=== PATIENT | male | born 1965 | race Caucasian/White ===

== ENCOUNTER 2017-01-02 19:42 | Inpatient (IN) | payer BC ==
[~2017-01-02] VITALS: Ht 203.2 cm; Wt 146.2 kg
[~2017-01-02 19:42] MED LIST: ASPI81TA21 PO; SERT50TA PO
[2017-01-02] MEDS ORDERED: DILTIAZEM BOLUS / DRIP IV STA ×2 (20:06→21:39)
[2017-01-02] MEDS ORDERED: SODIUM CHLORIDE 0.9% 1000ML 500 ML IV STA (20:06)
[2017-01-02] MEDS ORDERED: SODIUM CHLORIDE 0.9% 1000ML 1,000 ML IV STA (20:06)
[2017-01-02] MEDS ORDERED: DILTIAZEM HCL 5 MG/ML 5 ML VIAL ONE (20:12)
--- NOTE | 2017-01-02 20:32 | DIAGNOSTIC IMAGING REPORT ---
CHEST ONE VIEW PORTABLE HISTORY: EVALUATE ALTERED MENTAL STATUS/WEAKNESS COMPARISON: Chest 09/22/2015. FINDINGS: No pneumothorax. No pleural effusions. The heart remains mildly enlarged. There is mild central pulmonary vascular congestion without overt edema. No focal lung consolidations to suggest pneumonia. IMPRESSION: Mild cardiomegaly. Mild central pulmonary vascular congestion without overt edema. Electronically signed by: Brad Bentley M.D. 01/02/2017 8:30 PM Dictated Date/Time: 01/02/2017 8:29 PM
[2017-01-02 20:35] VITALS: BP 144/81; PULSE 94; TEMP 37; O2SAT 96
[2017-01-02] MEDS ORDERED: LTRCR30 TOP (20:35)
[2017-01-02] MEDS ORDERED: TRIA1SPR4 NAE (20:35)
[2017-01-02 20:40] LABS: ALT/SGPT 26 U/L (12-78); AST/SGOT 18 U/L (15-37); BLOOD UREA NITROGEN 20 mg/dl (7-18); BUN/CREATININE RATIO 18.1 (10-20); CALCIUM 8.8 mg/dl (8.5-10.1); CARBON DIOXIDE 26 mmol/L (21-32); CHLORIDE 108 mmol/L (98-107); GLUCOSE 135 mg/dl (70-99); POTASSIUM 3.7 mmol/L (3.5-5.1); SODIUM 141 mmol/L (136-145)
[2017-01-02] MEDS: DILTIAZEM HCL INJ 125 MG in DEXTROSE 5% 100ML IV PRN (20:42)
[2017-01-02 20:45] LABS: BASO % 0.3 %; BASO ABS # 0.02 K/uL (0-0.2); COMPLETE YES; EOS % 1.8 %; HEMATOCRIT 43.2 % (42-52); IG% 0.3 %; LYMPH % 27.9 %; LYMPH ABS # 1.85 K/uL (1.2-3.4); MEAN CELL VOLUME 85.2 fL (80-100); MEAN CORPUSCULAR HEMOGLOBIN 29.8 pg (25-34); MEAN PLATELET VOLUME 10.5 fL (7.4-10.4); MONO % 5.4 %; NEUT % 64.3 %; PLATELET COUNT 179 K/uL (130-400); RED BLOOD COUNT 5.07 M/uL (4.7-6.1); WHITE BLOOD COUNT 6.64 K/uL (4.8-10.8)
[2017-01-02 20:50] LABS: ALB/GLOB RATIO 1.1 (0.9-2); ALKALINE PHOSPHATASE 61 U/L (45-117)
[2017-01-02 20:57] LABS: INR 1.2 (0.9-1.1); PARTIAL THROMBOPLASTIN RATIO 1.2; PROTHROMBIN TIME (PATIENT) 13.3 SECONDS (9.0-12.0)
--- NOTE | 2017-01-02 21:06 | EMERGENCY ROOM VISIT NOTE ---
History Report prepared by Narciso: Laurel Zabala Under the Supervision of: Dr. Jorje Blackwell M.D. 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 The patient states that he felt well when he woke up, but then was pretty exhausted around 1600. He tried to take a nap, but was unable to fall asleep and when he got up from trying to take a nap, he became lightheaded. He states that he has been experiencing lightheadedness with changes in position since then. He is also experiencing some lightheadedness currently. He states that he proceeded to make dinner, but couldn't eat because he was uncomfortable. He went upstairs and measured his heartbeat on an tre on his phone. He states that it was repeatedly reading in the 130s and 140s, which is abnormal for him because his resting heart rate is typically in the 60s. After he noticed the tachycardia, he decided to come into the ED. He denies chest pain, shortness of breath, and any numbness. The patient adds that he has a history of anxiety and a panic disorder. He states that he feels panicky currently. The patient states that he was recently in [facility] on a Paleontology trip. He states that he is pretty active and works out 3 times a week. The patient adds that he has a history of syncope, more so when he was a kid. He states that his last syncopal episode was 14 years ago on a plane. He states a stress test and EKG after that were unremarkable. The patient is on statins as a preventive measure since his cholesterol was on the border of being high and heart disease runs in his family. The patient denies any history of heart rhythm abnormalities. He also denies any recent Sudafed or Mariana seltzer use, along with any recent alcohol use. However, the patient states he drank some strong coffee this afternoon. The patient states that his mom has atrial fibrillation. 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 A total of 10 systems reviewed and were otherwise negative. Past Medical & Surgical Medical Problems: (1) Hyperlipidemia (2) New onset a-fib (3) Panic disorder Family History Atrial fibrillation Heart disease Social History Smoking Status: Never Smoker Alcohol Use: occasionally Marital Status: Occupation Status: employed Current/Historical Medications Scheduled Aspirin Enteric Coated (Ecotrin Or Generic), 81 MG PO DAILY Clotrimazole (Lotrimin 1%), 1 APPLN TOP BID Pravastatin Sodium (Pravastatin Sodium), 40 MG PO HS Triamcinolone Acetonide (Nasal (Nasacort Allergy 24Hr), 2 SPRAYS EDI DAILY Allergies Coded Allergies: No Known Allergies (Unverified , 01/02/17) Physical Exam Vital Signs Date Time Temp Pulse Resp B/P Pulse Ox O2 Delivery O2 Flow Rate FiO2 01/02/17 21:45 112 18 120/95 95 Room Air 01/02/17 21:31 100 20 131/79 96 Room Air 01/02/17 21:00 109 20 134/91 98 Room Air 01/02/17 20:55 121 20 125/93 99 Room Air 01/02/17 20:50 122 20 156/101 98 Room Air 01/02/17 20:40 115 16 152/107 100 01/02/17 20:30 111 20 132/105 99 Room Air 01/02/17 20:22 112 16 127/106 99 Room Air 01/02/17 20:19 98 Room Air 01/02/17 20:15 133 20 140/94 98 Room Air 01/02/17 20:14 126 01/02/17 20:00 97 Room Air 01/02/17 19:49 36.9 120 20 153/86 96 Room Air Physical Exam GENERAL: Patient is in no acute distress. HEENT: No acute trauma, normocephalic atraumatic, mucous membranes moist, no nasal congestion, no scleral icterus. NECK: No stridor, no adenopathy, no meningismus, trachea is midline. LUNGS: Clear to auscultation bilaterally, no wheeze, no rhonchi, breath sounds equal. HEART: Tachycardic with an irregular rhythm, no murmurs. ABDOMEN: Soft, nontender, bowel sounds positive, no hernias, no peritonitis. EXTREMITIES: No cyanosis or edema, full range of motion of all the joints without pain or difficulty, no signs for acute trauma. NEUROLOGIC: Oriented x 3, no acute motor or sensory deficits, no focal weakness. SKIN: No rash, no jaundice, no diaphoresis. PSYCH: Somewhat anxious but cooperative. Medical Decision & Procedures ER Provider Diagnostic Interpretation: X-ray results as stated below per interpretation by me and the radiologist: CHEST ONE VIEW PORTABLE FINDINGS: No pneumothorax. No pleural effusions. The heart remains mildly enlarged. There is mild central pulmonary vascular congestion without overt edema. No focal lung consolidations to suggest pneumonia. IMPRESSION: Mild cardiomegaly. Mild central pulmonary vascular congestion without overt edema. Electronically signed by: Brad Bentley M.D. 01/02/2017 8:30 PM Dictated Date/Time: 01/02/2017 8:29 PM Laboratory Results 01/02/17 20:40 Red Blood Count 5.07, Mean Corpuscular Volume 85.2, Mean Corpuscular Hemoglobin 29.8, Mean Corpuscular Hemoglobin Concent 35.0, Mean Platelet Volume 10.5, Neutrophils (%) (Auto) 64.3, Lymphocytes (%) (Auto) 27.9, Monocytes (%) (Auto) 5.4, Eosinophils (%) (Auto) 1.8, Basophils (%) (Auto) 0.3, Neutrophils # (Auto) 4.27, Lymphocytes # (Auto) 1.85, Monocytes # (Auto) 0.36, Eosinophils # (Auto) 0.12, Basophils # (Auto) 0.02 01/02/17 20:00 Test 01/02/17 20:00 01/02/17 20:40 Anion Gap 7.0 mmol/L (3-11) Est Creatinine Clear Calc Drug Dose 122.6 ml/min Estimated GFR () 88.4 Estimated GFR (Non- 76.2 BUN/Creatinine Ratio 18.1 (10-20) Calcium Level 8.8 mg/dl (8.5-10.1) Magnesium Level 2.0 mg/dl (1.8-2.4) Total Bilirubin 0.3 mg/dl (0.2-1) Aspartate Amino Transf (AST/SGOT) 18 U/L (15-37) Alanine Aminotransferase (ALT/SGPT) 26 U/L (12-78) Alkaline Phosphatase 61 U/L (45-117) Total Protein 7.2 gm/dl (6.4-8.2) Albumin 3.8 gm/dl (3.4-5.0) Globulin 3.4 gm/dl (2.5-4.0) Albumin/Globulin Ratio 1.1 (0.9-2) Thyroid Stimulating Hormone (TSH) 2.090 uIu/ml (0.300-4.500) White Blood Count 6.64 K/uL (4.8-10.8) Red Blood Count 5.07 M/uL (4.7-6.1) Hemoglobin 15.1 g/dL (14.0-18.0) Hematocrit 43.2 % (42-52) Mean Corpuscular Volume 85.2 fL (80-100) Mean Corpuscular Hemoglobin 29.8 pg (25-34) Mean Corpuscular Hemoglobin Concent 35.0 g/dl (32-36) Platelet Count 179 K/uL (130-400) Mean Platelet Volume 10.5 fL (7.4-10.4) Neutrophils (%) (Auto) 64.3 % Lymphocytes (%) (Auto) 27.9 % Monocytes (%) (Auto) 5.4 % Eosinophils (%) (Auto) 1.8 % Basophils (%) (Auto) 0.3 % Neutrophils # (Auto) 4.27 K/uL (1.4-6.5) Lymphocytes # (Auto) 1.85 K/uL (1.2-3.4) Monocytes # (Auto) 0.36 K/uL (0.11-0.59) Eosinophils # (Auto) 0.12 K/uL (0-0.5) Basophils # (Auto) 0.02 K/uL (0-0.2) RDW Standard Deviation 39.3 fL (36.4-46.3) RDW Coefficient of Variation 12.7 % (11.5-14.5) Immature Granulocyte % (Auto) 0.3 % Immature Granulocyte # (Auto) 0.02 K/uL (0.00-0.02) Prothrombin Time 13.3 SECONDS (9.0-12.0) Prothromb Time International Ratio 1.2 (0.9-1.1) Activated Partial Thromboplast Time 30.0 SECONDS (21.0-31.0) Partial Thromboplastin Ratio 1.2 Laboratory results reviewed by me. Medications Administered Medications (Trade) Dose Ordered Sig/Nelson Route Start Time Stop Time Status Last Admin Dose Admin Sodium Chloride 500 ml @ 999 mls/hr Q31M STAT IV 01/02/17 20:06 01/02/17 20:36 DC 01/02/17 20:06 999 MLS/HR Sodium Chloride (Nss 1000ml) 1,000 ml @ 200 mls/hr Q5H STAT IV 01/02/17 20:06 01/02/17 23:02 DC 01/02/17 20:43 200 MLS/HR Diltiazem HCl 25 mg 25 mg STK-MED ONCE .ROUTE 01/02/17 20:12 01/02/17 20:13 DC 01/02/17 20:28 10 MG Diltiazem HCl/ Dextrose (Cardizem Inj/D5 100ml) 125 ml @ 5 mls/hr Q24H PRN IV 01/02/17 20:30 02/01/17 20:29 01/02/17 20:42 5 MLS/HR ECG Indication: tachycardia Rate (beats per minute): 133 Rhythm: atrial fibrillation (rapid) Findings: T-wave inversion (Inferior), no acute ischemic change, no ectopy ED Course 2000: The patient was evaluated in room B4. A complete history and physical exam was performed. 2006: Ordered Sodium Chloride 1000 ml @ 200 mls/hr IV, Sodium Chloride 500 ml @ 999 mls/hr IV 2012: Ordered Diltiazem HCl 25 mg IV 2030: Ordered Diltiazem HCl 125 mg/Dextrose 125 ml @ 5 mls/hr Protocol IV 4: Upon reexamination the patient is resting comfortably. I discussed results and treatment plan with the patient. He verbalizes agreement and understanding. The patient will be evaluated for further management. 2139: Dr. Mckeon - [facility] was consulted. The patient will be evaluated for further management. Medical Decision Differential diagnoses considered include rapid atrial fibrillation or atrial flutter, SVT, GA, electrolyte imbalance, dehydration, thyroid disorder, cardiomegaly. There is no leukocytosis or concerning anemia. No significant electrolyte abnormality, kidney failure or hepatitis. The patient appears to be in a euthyroid state. Chest x-ray does not show significant cardiomegaly, pneumonia or CHF. EKG shows a rapid A. fib, no acute ischemia. Cardiac enzyme testing times one is not consistent with acute cardiac injury. The patient presents with lightheadedness and a rapid heart rate. He is in atrial fibrillation. This is new onset for him. He is not having chest pain, he is not short of breath. The patient received IV saline, he was given a bolus of IV diltiazem and placed on a diltiazem drip to be titrated to effect. He has done well with this medication and his heart rate is decreasing but he remains in a fib. Admission/observation is warranted. I talked to the patient and case management. The on-call hospitalist was consulted. Consults Time Called: 2119 Consulting Physician: Dr. Linda EASTMAN Returned Call: 2139 Dr. Linda EASTMAN was consulted. The patient will be evaluated for further management. Impression Primary Impression: Rapid atrial fibrillation Critical Care I have personally spent greater than 30 minutes of critical care time in the direct management of this patient. This includes bedside care, interpretation of diagnostic studies, and testing, discussion with consultants, patient, and family members, and other required patient management activities. This 30 minutes is in excess of all separately billable procedures. Scribe Attestation The scribe's documentation has been prepared under my direction and personally reviewed by me in its entirety. I confirm that the note above accurately reflects all work, treatment, procedures, and medical decision making performed by me. Departure Information Dispostion Being Evaluated By Hospitalist Referrals Charlie Silverman M.D. (PCP) Patient Instructions My [facility]
[2017-01-02] MEDS ORDERED: ACETAMINOPHEN 325 MG TAB PO PRN (21:45)
[2017-01-02] MEDS ORDERED: NITROGLYCERIN 0.4 MG SL PER TAB CHARGE SL PRN (21:45)
[2017-01-02] MEDS ORDERED: MoRPHine SULFATE 2 MG/ML CARP IV PRN (21:45)
[2017-01-02] MEDS ORDERED: ZOLPIDEM TARTRATE 5 MG TAB PO PRN (21:45)
[2017-01-02] MEDS ORDERED: POLYETHYLENE (MIRALAX) 17 GM PACK PO PRN (21:45)
[2017-01-02] MEDS ORDERED: ALUMINUM/MAGNESIUM/SIMETH (MAALOX MAX) 30 ML UDC PO PRN (21:45)
[2017-01-02] MEDS ORDERED: MAGNESIUM HYDROXIDE SUSP 30 ML UDC PO PRN (21:45)
[2017-01-02] MEDS ORDERED: ONDANSETRON INJ 2 MG/ML 2 ML VIAL IV PRN (21:45)
[2017-01-02] MEDS ORDERED: PRAV40TA2 PO (22:19)
--- NOTE | 2017-01-02 22:31 | History and Physical ---
History & Physical Date & Time of Service: Jan 02, 2017 at 22:05 Chief Complaint: Racing Pulse,Light Headed Anxious Primary Care Physician: Charlie Silverman M.D. History of Present Illness Source: patient 51 y/o M Hx HLD and anxiety disorder. The pt felt like his heart was pounding beginning in early afternoon. He then developed palpitations and tachycardia later in the day and presented to the ER. An initial EKG revealed AF/RVR with a rate of ~ 140. There are inferior T wv inversion. He denies any CP, SOB, N/ V or diaphoresis. He did have a degree of lightheadedness. The pt has a history of syncopal episodes mostly in his youth. [place] He has had palpitations previously and has had a full cardiac workup within the last few years which proved normal. He performs cardiovascular exercise regularly. 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[facility] frequently Smoking Status: Never Smoker Marital Status: Housing status: lives with family Occupational Status: employed Multi-Drug Resistant Organisms History of MDRO: No Allergies Coded Allergies: No Known Allergies (Unverified , 01/02/17) Home Medications Scheduled Aspirin Enteric Coated (Ecotrin Or Generic), 81 MG PO DAILY Clotrimazole (Lotrimin 1%), 1 APPLN TOP BID Pravastatin Sodium (Pravastatin Sodium), 40 MG PO HS Triamcinolone Acetonide (Nasal (Nasacort Allergy 24Hr), 2 SPRAYS EDI DAILY Review of Systems Constitutional: No chills, No fever, No sweats Eyes: No worsening of vision ENT: No hearing loss, No nasal symptoms, No unusual epistaxis Respiratory: No cough, No sputum, No wheezing Cardiovascular: + palpitations, No PND, No chest pain, No orthopnea Abdomen: No nausea, No pain, No vomiting Musculoskeletal: No joint pain, No muscle pain Genitourinary - Male: No dysuria, No hematuria, No urinary frequency Neurologic: No memory loss, No paralysis, No weakness Psychiatric: + anxiety, No depression symptoms Endocrine: No fatigue Hematologic / Lymphatic: No abnormal bleeding/bruising Integumentary: No rash Allergic / Immunologic: No environmental allergies Physical Exam Vital Signs Date Time Temp Pulse Resp B/P Pulse Ox O2 Delivery O2 Flow Rate FiO2 01/02/17 21:00 109 20 134/91 98 Room Air 01/02/17 20:55 121 20 125/93 99 Room Air 01/02/17 20:50 122 20 156/101 98 Room Air 01/02/17 20:40 115 16 152/107 100 01/02/17 20:30 111 20 132/105 99 Room Air 01/02/17 20:22 112 16 127/106 99 Room Air 01/02/17 20:19 98 Room Air 01/02/17 20:15 133 20 140/94 98 Room Air 01/02/17 20:14 126 01/02/17 20:00 97 Room Air 01/02/17 19:49 36.9 120 20 153/86 96 Room Air General Appearance: WD/WN, no apparent distress Head: normocephalic, atraumatic Eyes: normal inspection ENT: normal ENT inspection, hearing grossly normal, TMs normal, pharynx normal Neck: supple, no JVD Respiratory/Chest: chest non-tender, lungs clear, normal breath sounds Cardiovascular: no edema, no gallop, no JVD, no murmur, normal peripheral pulses, + tachycardia, + irregularly irregular Abdomen/GI: normal bowel sounds, non tender, soft Back: normal inspection, no CVA tenderness Extremities/Musculoskelatal: normal inspection, no calf tenderness, normal capillary refill, no pedal edema, normal range of motion Neurologic/Psych: neonatal surgeon II-XII nml as tested, no motor/sensory deficits, alert, normal mood/affect, normal reflexes, oriented x 3 Skin: normal color, warm/dry, no rash Diagnostics Laboratory Results Results Past 24 Hours Test 01/02/17 20:00 01/02/17 20:40 Range/Units Sodium Level 141 136-145 mmol/L Potassium Level 3.7 3.5-5.1 mmol/L Chloride Level 108 98-107 mmol/L Carbon Dioxide Level 26 21-32 mmol/L Anion Gap 7.0 3-11 mmol/L Blood Urea Nitrogen 20 7-18 mg/dl Creatinine 1.10 0.60-1.40 mg/dl Est Creatinine Clear Calc Drug Dose 122.6 ml/min Estimated GFR () 88.4 Estimated GFR (Non- 76.2 BUN/Creatinine Ratio 18.1 10-20 Random Glucose 135 70-99 mg/dl Calcium Level 8.8 8.5-10.1 mg/dl Magnesium Level 2.0 1.8-2.4 mg/dl Total Bilirubin 0.3 0.2-1 mg/dl Aspartate Amino Transf (AST/SGOT) 18 15-37 U/L Alanine Aminotransferase (ALT/SGPT) 26 12-78 U/L Alkaline Phosphatase 61 45-117 U/L Troponin I < 0.015 0-0.045 ng/ml Total Protein 7.2 6.4-8.2 gm/dl Albumin 3.8 3.4-5.0 gm/dl Globulin 3.4 2.5-4.0 gm/dl Albumin/Globulin Ratio 1.1 0.9-2 Thyroid Stimulating Hormone (TSH) 2.090 0.300-4.500 uIu/ml White Blood Count 6.64 4.8-10.8 K/uL Red Blood Count 5.07 4.7-6.1 M/uL Hemoglobin 15.1 14.0-18.0 g/dL Hematocrit 43.2 42-52 % Mean Corpuscular Volume 85.2 80-100 fL Mean Corpuscular Hemoglobin 29.8 25-34 pg Mean Corpuscular Hemoglobin Concent 35.0 32-36 g/dl Platelet Count 179 130-400 K/uL Mean Platelet Volume 10.5 7.4-10.4 fL Neutrophils (%) (Auto) 64.3 % Lymphocytes (%) (Auto) 27.9 % Monocytes (%) (Auto) 5.4 % Eosinophils (%) (Auto) 1.8 % Basophils (%) (Auto) 0.3 % Neutrophils # (Auto) 4.27 1.4-6.5 K/uL Lymphocytes # (Auto) 1.85 1.2-3.4 K/uL Monocytes # (Auto) 0.36 0.11-0.59 K/uL Eosinophils # (Auto) 0.12 0-0.5 K/uL Basophils # (Auto) 0.02 0-0.2 K/uL RDW Standard Deviation 39.3 36.4-46.3 fL RDW Coefficient of Variation 12.7 11.5-14.5 % Immature Granulocyte % (Auto) 0.3 % Immature Granulocyte # (Auto) 0.02 0.00-0.02 K/uL Prothrombin Time 13.3 9.0-12.0 SECONDS Prothromb Time International Ratio 1.2 0.9-1.1 Activated Partial Thromboplast Time 30.0 21.0-31.0 SECONDS Partial Thromboplastin Ratio 1.2 EKG AF, RVR, inf T wv inversions Impression Assessment and Plan 51 y/o M Hx HLD and anxiety disorder. The pt felt like his heart was pounding beginning in early afternoon. He then developed palpitations and tachycardia later in the day and presented to the ER. An initial EKG revealed AF/RVR with a rate of ~ 140. There are inferior T wv inversion. He denies any CP, SOB, N/ V or diaphoresis. He did have a degree of lightheadedness. The pt has a history of syncopal episodes mostly in his youth. [place] He has had palpitations previously and has had a full cardiac workup within the last few years which proved normal. He performs cardiovascular exercise regularly. 1) New AF - Pt placed on Cardizem. Echo and cardio consult scheduled. He does not c/o CP. Technically he would qualify for treatment with ASA only based on his CHADS2 score of 1.9% however there are inf T wv inversions on his EKG. We will therefore place him on full dose anticoagulation and trend enzymes pending cardiology evaluation. 2) HLD - cont statin Tx 3) Anxiety - not currently treated Full code - full dose Heparin Total time for this admit including review of labs, meds, EKG, records - discussion with pt and ER attending 33 min Level of Care Telemetry Resuscitation Status FULL RESUSCITATION VTE Prophylaxis VTE Risk Assessment Done? Y/N: Yes Risk Level: Low Given or contraindicated: Other Anticoagulation
[2017-01-02 22:35] VITALS: BP 144/81; PULSE 94; TEMP 37; O2SAT 96; Ht 203.2 cm; Wt 146.2 kg
[2017-01-02] MEDS ORDERED: HEPARIN IV BOLUS 9,000 UNIT in SYRINGE 0 ML IV ONE (23:15)
[2017-01-02] MEDS: HEPARIN 25,000 UNIT/500ML D5W 500 ML IV PRN (23:29)
[2017-01-02] MEDS: NSS + 20MEQ KCL 1000ML 1,000 ML IV SCH (23:34)
[2017-01-03 00:30] VITALS: BP 137/89; PULSE 101; TEMP 37; O2SAT 96
[2017-01-03 04:00] VITALS: BP 109/77; PULSE 147; TEMP 36.9; O2SAT 99
[2017-01-03 06:20] LABS: PARTIAL THROMBOPLASTIN RATIO 2.6
[2017-01-03 07:46] VITALS: BP 134/97; PULSE 107; TEMP 36.9; O2SAT 99
[2017-01-03] MEDS ORDERED: ASPIRIN 81 MG ECTAB PO SCH (09:00)
[2017-01-03] MEDS: CLOTRIMAZOLE 1% CR 15 GM TUBE EXT SCH ×2 (09:00→21:35)
[2017-01-03] MEDS: DILTIAZEM HCL INJ 125 MG in DEXTROSE 5% 100ML IV PRN ×2 (10:26→18:53)
[2017-01-03] MEDS: NSS + 20MEQ KCL 1000ML 1,000 ML IV SCH (10:27)
[2017-01-03 11:06] VITALS: BP 133/86; PULSE 96; TEMP 36.8; O2SAT 95
--- NOTE | 2017-01-03 11:41 | ECHOCARDIOGRAM REPORT ---
*NOTICE TO RECEIVING [employer] This information is strictly Confidential and protected under [place] law. [place] law prohibits you from making any further disclosure of this information unless further disclosure is expressly permitted by the written consent of the person to whom it pertains or is authorized by law. A general authorization for the release of medical or other information is not sufficient for this purpose. Hospital accepts no responsibility if the information is made available to any other person, INCLUDING THE PATIENT. Interpretation Summary * Name: EUN KNUTSON Study Date: 01/03/2017 09:48 AM BP: 109/77 mmHg * Patient Location: C.2T\S\S243\S\1 HR: 147 * : 1965 (M/d/yyyy) Gender: Male Height: 80 in * Age: 51 yrs Ethnicity: CA Weight: 330 lb * Ordering Physician: Phil Mckeon * Performed By: Namrata Diaz * * Reason For Study: A-FIB * BSA: 2.8 m2 * -- Conclusions -- * Left ventricular systolic function is normal. * No regional wall motion abnormalities noted. * Ejection Fraction = 65-70%. * There is mild mitral regurgitation. * There is mild tricuspid regurgitation. Procedure Details * A complete two-dimensional transthoracic echocardiogram was performed (2D, M-mode, Doppler and color flow Doppler). * A contrast injection of Definity was performed to improve assessment of LV function. * Contrast was injected into an intravenous site in the left arm. * One vial of Definity ultrasound contrast was diluted in normal saline to a total volume of 10 ml. A total of '3' ml of solution was administered during imaging. * Lot # [id number] of Definity utilized for procedure. * Expiration date 12/22. * The attending nurse who injected the contrast agent was PEREZ COOPER RN. Left Ventricle * The left ventricle is normal in size. * There is normal left ventricular wall thickness. * Ejection Fraction = 65-70%. * Left ventricular systolic function is normal. * No regional wall motion abnormalities noted. Right Ventricle * The right ventricle is grossly normal size. * The right ventricular systolic function is normal as assessed by tricuspid annular plane systolic excursion (TAPSE) (normal >1.5 cm). Atria * The left atrium is mildly dilated. * Right atrial size is normal. * No ASD detected; PFO is not assessed. Mitral Valve * The mitral valve is grossly normal. * There is no mitral valve stenosis. * There is mild mitral regurgitation. Tricuspid Valve * The tricuspid valve is not well visualized, but is grossly normal. * There is no tricuspid stenosis. * There is mild tricuspid regurgitation. Aortic Valve * The aortic valve is trileaflet. * The aortic valve opens well. * No hemodynamically significant valvular aortic stenosis. * No aortic regurgitation is present. Pulmonic Valve * The pulmonary valve is not well seen, but the Doppler examination is normal without significant regurgitation or stenosis. Great Vessels * The aortic root is normal size. * The pulmonary is not well visualized. Pericardium/Pleural * There is no pericardial effusion. Great Vessels * Normal inferior vena cava size and collapsability with sniff indicates a normal right atrial pressure of 3 mmHg MMode 2D Measurements and Calculations IVSd 1.4 cm IVSs 1.7 cm LVIDd 5.4 cm LVIDs 3.5 cm LVPWd 1.2 cm LVPWs 2.3 cm IVS/LVPW 1.2 FS 35.9 % EDV(Teich) 141.1 ml ESV(Teich) 49.5 ml EF(Teich) 64.9 % EDV(cubed) 157.1 ml ESV(cubed) 41.5 ml EF(cubed) 73.6 % % IVS thick 21.0 % % LVPW thick 100.8 % LV mass(C)d 289.4 grams LV mass(C)dI 101.7 grams/m\S\2 LV mass(C)s 315.7 grams LV mass(C)sI 111.0 grams/m\S\2 SV(Teich) 91.6 ml SI(Teich) 32.2 ml/m\S\2 SV(cubed) 115.7 ml SI(cubed) 40.7 ml/m\S\2 ACS 1.6 cm asc Aorta Diam 3.6 cm LVOT diam 2.0 cm LVOT area 3.3 cm\S\2 LVAd ap4 36.9 cm\S\2 LVLd ap4 8.9 cm EDV(MOD-sp4) 123.8 ml EDV(sp4-el) 129.2 ml LVAs ap4 16.9 cm\S\2 LVLs ap4 6.2 cm ESV(MOD-sp4) 38.3 ml ESV(sp4-el) 39.3 ml EF(MOD-sp4) 69.1 % EF(sp4-el) 69.6 % LVAd ap2 32.8 cm\S\2 LVLd ap2 8.0 cm EDV(MOD-sp2) 110.6 ml EDV(sp2-el) 114.0 ml LVAs ap2 16.1 cm\S\2 LVLs ap2 6.5 cm ESV(MOD-sp2) 34.5 ml ESV(sp2-el) 33.7 ml EF(MOD-sp2) 68.8 % EF(sp2-el) 70.4 % LVLd %diff -11.58 % EDV(MOD-bp) 125.5 ml LVLs %diff 5.3 % ESV(MOD-bp) 37.0 ml EF(MOD-bp) 70.5 % SV(MOD-sp4) 85.6 ml SI(MOD-sp4) 30.1 ml/m\S\2 SV(MOD-sp2) 76.1 ml SI(MOD-sp2) 26.8 ml/m\S\2 SV(MOD-bp) 88.5 ml SI(MOD-bp) 31.1 ml/m\S\2 SV(sp4-el) 89.9 ml SI(sp4-el) 31.6 ml/m\S\2 SV(sp2-el) 80.3 ml SI(sp2-el) 28.2 ml/m\S\2 Doppler Measurements and Calculations MV E max west 109.1 cm/sec MV dec time 0.15 sec Ao V2 max 164.9 cm/sec Ao max PG 10.9 mmHg Ao max PG (full) 8.0 mmHg NASIM(V,A) 1.7 cm\S\2 NASIM(V,D) 1.7 cm\S\2 LV V1 max PG 2.9 mmHg LV V1 max 85.4 cm/sec PA V2 max 92.2 cm/sec PA max PG 3.4 mmHg
[2017-01-03 12:10] LABS: CHOLESTEROL/HDL RATIO 2.3
[2017-01-03] MEDS ORDERED: NURSING VERBAL MED ORDER ONE (12:30)
[2017-01-03] MEDS ORDERED: METOPROLOL TARTRATE 50 MG TAB PO ONE (12:45)
--- NOTE | 2017-01-03 12:50 | Progress Note ---
Subjective Date of Service: Jan 03, 2017. Subjective Pt evaluation today including: conversation w/ patient, physical exam, lab review, review of studies, review of inpatient medication list No chest pain, no sob. Recently had bronchitis, on nasocort for post-nasal drip. Reports he snores, but never told of any apneic episodes. Recently had thyroid function tested which were normal, he reports. Remains on IVF, diltiazem drip and heparin drip. Problem List Medical Problems: (1) Hyperlipidemia Status: Chronic (2) Panic disorder Status: Chronic (3) Rapid atrial fibrillation Status: Acute Review of Systems All Other Systems: Reviewed and Negative Medications Acetaminophen (Tylenol Tab) 650 mg Q4H PRN PO; Start 01/02/17 at 21:45; Stop 02/01/17 at 21:44 Al Hydrox/Mg Hydrox/Simethicone (Maalox Max Susp) 15 ml Q4H PRN PO; Start 01/02 at 21:45; Stop 02/01/17 at 21:44 Aspirin (Ecotrin Tab) 81 mg DAILY PO; Start 01/03/17 at 09:00; Stop 02/02/17 at 08:59 Clotrimazole (Lotrimin 1% Crm) 1 appln BID EXT; Start 01/03/17 at 09:00; Stop at 08:59 Diltiazem HCl/ Dextrose (Cardizem Inj/D5 100ml) 125 ml @ 5 mls/hr Q24H PRN IV Last administered on 01/03/17 10:26; Admin Dose 15 MLS/HR; Start 01/02/17 at 20 :30; Stop 02/01/17 at 20:29 Heparin Sodium/ Dextrose (Heparin 25,000 Unit/500ml D5W) 500 ml @ 40 mls/hr [id number] PRN IV Last administered on 01/02/17 23:29; Admin Dose 40 MLS/HR; Start 01/02/17 at 23:15; Stop 02/01/17 at 23:14 Magnesium Hydroxide (Milk Of Magnesia Susp) 30 ml Q12H PRN PO; Start 01/02/17 at 21:45; Stop 02/01/17 at 21:44 Metoprolol Tartrate (Lopressor Tab) 50 mg 1245 ONCE PO; Start 01/03/17 at 12:45 ; Stop 01/03/17 at 12:46 Metoprolol Tartrate (Lopressor Tab) 50 mg Q6 PO; Start 01/03/17 at 18:00; Stop 02/02/17 at 17:59 Morphine Sulfate (MoRPHine SULFATE INJ) 2 mg Q30M PRN IV; Start 01/02/17 at 21: 45; Stop 01/16/17 at 21:44 Nitroglycerin (Nitrostat Tab) 0.4 mg UD PRN SL; Start 01/02/17 at 21:45; Stop 02/01/17 at 21:44 Ondansetron HCl (Zofran Inj) 4 mg Q6H PRN IV; Start 01/02/17 at 21:45; Stop at 21:44 Polyethylene 17 gm 17 gm DAILY PRN PO; Start 01/02/17 at 21:45; Stop 02/01/17 at 21:44 Potassium Chloride/Sodium Chloride (Nss + 20meq KCl 1000ml) 1,000 ml @ 100 mls/ hr Q10H IV Last administered on 01/03/17t 10:27; Admin Dose 100 MLS/HR; Start at 23:30; Stop 01/03/17 at 19:29 Pravastatin Sodium 40 mg 40 mg HS PO; Start 01/03/17 at 21:00; Stop 02/02/17 at 20:59 Zolpidem Tartrate (Ambien Tab) 5 mg HSZ PRN PO; Start 01/02/17 at 21:45; Stop 02/01/17 at 21:44 Objective Vital Signs Date Time Temp Pulse Resp B/P Pulse Ox O2 Delivery O2 Flow Rate FiO2 01/03/17 11:06 36.8 96 19 133/86 95 Room Air 01/03/17 07:46 36.9 107 22 134/97 99 Room Air 01/03/17 04:00 36.9 147 20 109/77 99 Room Air 01/03/17 00:30 37.0 101 18 137/89 96 Room Air 01/02/17 22:35 37.0 94 17 144/81 96 Room Air 01/02/17 22:35 37.0 94 17 144/81 96 Room Air 01/02/17 22:00 112 20 103/95 95 Room Air 01/02/17 21:45 112 18 120/95 95 Room Air 01/02/17 21:31 100 20 131/79 96 Room Air 01/02/17 21:00 109 20 134/91 98 Room Air 01/02/17 20:55 121 20 125/93 99 Room Air 01/02/17 20:50 122 20 156/101 98 Room Air 01/02/17 20:40 115 16 152/107 100 01/02/17 20:30 111 20 132/105 99 Room Air 01/02/17 20:22 112 16 127/106 99 Room Air 01/02/17 20:19 98 Room Air 01/02/17 20:15 133 20 140/94 98 Room Air 01/02/17 20:14 126 01/02/17 20:00 97 Room Air 01/02/17 19:49 36.9 120 20 153/86 96 Room Air Physical Exam Comments: nad, aox3, anicterics, coherent and fluent speech irreg irreg, tachycardic, no murmurs appreciated ctab no w/r/r abd soft nt/nd +BS no LE edema Laboratory Results Last 24 Hours Test 01/02/17 20:00 01/02/17 20:40 01/02/17 23:08 01/03/17 05:14 Sodium Level 141 mmol/L Potassium Level 3.7 mmol/L Chloride Level 108 mmol/L Carbon Dioxide Level 26 mmol/L Anion Gap 7.0 mmol/L Blood Urea Nitrogen 20 mg/dl Creatinine 1.10 mg/dl Est Creatinine Clear Calc Drug Dose 122.6 ml/min Estimated GFR () 88.4 Estimated GFR (Non- 76.2 BUN/Creatinine Ratio 18.1 Random Glucose 135 mg/dl Calcium Level 8.8 mg/dl Magnesium Level 2.0 mg/dl Total Bilirubin 0.3 mg/dl Aspartate Amino Transf (AST/SGOT) 18 U/L Alanine Aminotransferase (ALT/SGPT) 26 U/L Alkaline Phosphatase 61 U/L Troponin I < 0.015 ng/ml 0.019 ng/ml 0.016 ng/ml Total Protein 7.2 gm/dl Albumin 3.8 gm/dl Globulin 3.4 gm/dl Albumin/Globulin Ratio 1.1 Thyroid Stimulating Hormone (TSH) 2.090 uIu/ml White Blood Count 6.64 K/uL Red Blood Count 5.07 M/uL Hemoglobin 15.1 g/dL Hematocrit 43.2 % Mean Corpuscular Volume 85.2 fL Mean Corpuscular Hemoglobin 29.8 pg Mean Corpuscular Hemoglobin Concent 35.0 g/dl Platelet Count 179 K/uL Mean Platelet Volume 10.5 fL Neutrophils (%) (Auto) 64.3 % Lymphocytes (%) (Auto) 27.9 % Monocytes (%) (Auto) 5.4 % Eosinophils (%) (Auto) 1.8 % Basophils (%) (Auto) 0.3 % Neutrophils # (Auto) 4.27 K/uL Lymphocytes # (Auto) 1.85 K/uL Monocytes # (Auto) 0.36 K/uL Eosinophils # (Auto) 0.12 K/uL Basophils # (Auto) 0.02 K/uL RDW Standard Deviation 39.3 fL RDW Coefficient of Variation 12.7 % Immature Granulocyte % (Auto) 0.3 % Immature Granulocyte # (Auto) 0.02 K/uL Prothrombin Time 13.3 SECONDS Prothromb Time International Ratio 1.2 Activated Partial Thromboplast Time 30.0 SECONDS 68.8 SECONDS Partial Thromboplastin Ratio 1.2 2.6 Test 01/03/17 11:15 Triglycerides Level 43 mg/dl Cholesterol Level 147 mg/dl HDL Cholesterol 63 mg/dl LDL Cholesterol, Calculated 75 mg/dl VLDL Cholesterol, Calculated 9 mg/dl Cholesterol/HDL Ratio 2.3 CHEST ONE VIEW PORTABLE HISTORY: EVALUATE ALTERED MENTAL STATUS/WEAKNESS COMPARISON: Chest 09/22/2015. FINDINGS: No pneumothorax. No pleural effusions. The heart remains mildly enlarged. There is mild central pulmonary vascular congestion without overt edema. No focal lung consolidations to suggest pneumonia. IMPRESSION: Mild cardiomegaly. Mild central pulmonary vascular congestion without overt edema. Interpretation Summary * Name: EUN KNUTSON Study Date: 01/03/2017 09:48 AM BP: 109/77 mmHg * Patient Location: .2T\S\S243\S\1 HR: 147 * : 1965 (M/d/yyyy) Gender: Male Height: 80 in * Age: 51 yrs Ethnicity: CA Weight: 330 lb * Ordering Physician: Phil Mckeon * Performed By: Namrata Diaz * * Reason For Study: A-FIB * BSA: 2.8 m2 * -- Conclusions -- * Left ventricular systolic function is normal. * No regional wall motion abnormalities noted. * Ejection Fraction = 65-70%. * There is mild mitral regurgitation. * There is mild tricuspid regurgitation. Procedure Details * A complete two-dimensional transthoracic echocardiogram was performed (2D, M- mode, Doppler and color flow Doppler). * A contrast injection of Definity was performed to improve assessment of LV function. * Contrast was injected into an intravenous site in the left arm. * One vial of Definity ultrasound contrast was diluted in normal saline to a total volume of 10 ml. A total of '3' ml of solution was administered during imaging. * Lot # [id number] of Definity utilized for procedure. * Expiration date 12/22. * The attending nurse who injected the contrast agent was PEREZ COOPER RN. Left Ventricle * The left ventricle is normal in size. * There is normal left ventricular wall thickness. * Ejection Fraction = 65-70%. * Left ventricular systolic function is normal. * No regional wall motion abnormalities noted. Right Ventricle * The right ventricle is grossly normal size. * The right ventricular systolic function is normal as assessed by tricuspid annular plane systolic excursion (TAPSE) (normal >1.5 cm). Assessment and Plan 1. New-onset afib - currently on diltiazem drip - metoprolol po to be started -cardio on board - echo as above, no valvular and ventricular dysfunction - low CHADSVASC, may not need long-term anticoagulation, aspirin would be adequate for stroke ppx - TSH wnl, may need sleep study outpatient 2. Post-nasal drip - cont flonase 2 in each nostril daily
--- NOTE | 2017-01-03 14:05 | CARDIOLOGY CONSULTATION ---
DATE OF CONSULTATION: 01/03/2017 PERTINENT HISTORY: Mr. Lopez is a healthy 51-year-old male admitted last evening with new onset atrial fibrillation and a rapid ventricular response. This consultation was ordered to assist in his management. Of note, the patient typically follows with Dr. Cruz for his cardiac care. The patient was in his usual state of health until yesterday afternoon when he began to note orthostatic dizziness. At approximately 3 p.m., the patient went to his bedroom to "take a nap." When supine, he noticed his heart "jumping" in his chest. He was not able to sleep and then returned to have dinner with his family. The patient continued to have orthostatic dizziness and knew that "something was uncomfortable and not right." He then proceeded to the Emergency Room for further care. On arrival here, he was noted to be in atrial fibrillation with a rapid ventricular response. Hospitalization was recommended for further care. The patient has never known of a prior episode of atrial fibrillation. He does carry a history of recurrent syncope and has undergone an extensive workup both in 2002 and approximately [address] Cruz. Workup was unremarkable according to his report. Currently, the patient is resting comfortably in bed without complaints. PAST MEDICAL HISTORY: 1. Hypercholesterolemia. 2. History of recurrent syncope. 3. Panic disorder. 4. Anxiety. 5. Cataract. MEDICATIONS: 1. Heparin drip. 2. Diltiazem drip. 3. Aspirin 81 mg daily. 4. Pravachol 40 mg at bedtime. ALLERGIES: None. SOCIAL HISTORY: The patient is and lives with his and children. 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 Does not use tobacco. Alcohol use is occasional. FAMILY HISTORY: Father of ALS in his late 70s. Did have coronary artery disease in his early 70s. Mother is 86 and has atrial fibrillation. A brother developed coronary artery disease in his mid 50s. REVIEW OF SYSTEMS: A 10-point review of systems was negative except for that described above. PHYSICAL EXAMINATION: GENERAL: This is a well-developed, well-nourished white male in no acute distress. VITAL SIGNS: Blood pressure is 133/86 with an irregular pulse of 100. Respiratory rate is 18. The patient is afebrile at 36.8 degrees Celsius. Saturation is 95% on room air. HEENT: Negative. NECK: Supple with full carotid upstrokes. There are no carotid bruits. Jugular venous pressure is flat at 90 degrees. There is no thyromegaly. CARDIOVASCULAR: Reveals an irregularly irregular rhythm with distant heart sounds. No obvious murmurs. No S3. LUNGS: Clear without rales, rhonchi, or wheezes. ABDOMEN: Obese without bruits. EXTREMITIES: Reveal intact radial artery and posterior tibial pulses bilaterally. There is no peripheral edema. DATA: CBC notes a hemoglobin of 15.1, hematocrit 43.2, white count 6.6, and platelet count 179,000. Electrolytes note a sodium of 141, potassium 3.7, chloride 108, bicarb 26, BUN 20, creatinine 1.1, glucose 135. Magnesium level is normal at 2.0. Troponin I level is normal at 0.015, 0.019, and 0.016. TSH is normal at 2.09. PTT is therapeutic at 68.8. EKG notes atrial fibrillation with a rapid ventricular response. Chest x-ray shows mild cardiomegaly but no failure. monitoring manager confirms atrial fibrillation with an increased ventricular response. IMPRESSION: Mr. Lopez developed atrial fibrillation with a rapid ventricular response yesterday by his history. His CHADS and CHADS-VASc score is 0, making his thromboembolic risk low. There is no indication for electrical cardioversion at this time as the patient has minimal symptoms. However, his ventricular response could be better controlled. We will add metoprolol tartrate to his current medical regimen. If still in atrial fibrillation tomorrow with a rapid ventricular response, could consider electrical cardioversion. PLAN: 1. Add metoprolol tartrate 50 mg q. 6 hours. 2. Continue heparin and diltiazem for now. 3. Could consider electrical cardioversion tomorrow if he still demonstrates a rapid ventricular response to his atrial dysrhythmia. 4. Dr. Cruz to assume his care tomorrow morning.
[2017-01-03 15:29] VITALS: BP 115/75; PULSE 60; TEMP 37.1; O2SAT 95
[2017-01-03] MEDS: METOPROLOL TARTRATE 50 MG TAB PO SCH (18:03)
[2017-01-03 19:04] VITALS: BP 93/55; PULSE 63; TEMP 36.9; O2SAT 95
[2017-01-03] MEDS ORDERED: PRAVASTATIN SOD 40 MG TAB PO SCH (21:00)
[2017-01-03] MEDS: HEPARIN 25,000 UNIT/500ML D5W 500 ML IV PRN (23:35)
[2017-01-04] VITALS (10 sets, daily range): BP systolic 87–136; BP diastolic 49–91; PULSE 57–126; TEMP 36.5–36.9; O2SAT 95–99
[2017-01-04] MEDS: DILTIAZEM HCL INJ 125 MG in DEXTROSE 5% 100ML IV PRN (02:20)
[2017-01-04] MEDS: METOPROLOL TARTRATE 50 MG TAB PO SCH ×2 (05:33)
[2017-01-04 07:57] LABS: BASO % 0.3 %; BASO ABS # 0.02 K/uL (0-0.2); COMPLETE YES; EOS % 0.8 %; HEMATOCRIT 42.6 % (42-52); IG% 0.1 %; LYMPH % 35.9 %; LYMPH ABS # 2.57 K/uL (1.2-3.4); MEAN CELL VOLUME 86.8 fL (80-100); MEAN CORPUSCULAR HEMOGLOBIN 30.1 pg (25-34); MEAN CORPUSCULAR HGB CONC 34.7 g/dl (32-36); MEAN PLATELET VOLUME 11.5 fL (7.4-10.4); MONO % 9.7 %; NEUT % 53.2 %; PLATELET COUNT 175 K/uL (130-400); RED BLOOD COUNT 4.91 M/uL (4.7-6.1); WHITE BLOOD COUNT 7.15 K/uL (4.8-10.8)
[2017-01-04 08:16] LABS: PARTIAL THROMBOPLASTIN RATIO 2.8
[2017-01-04 08:31] LABS: BUN/CREATININE RATIO 12.8 (10-20); CREATININE 1.1 mg/dl (0.60-1.40); MAGNESIUM 1.9 mg/dl (1.8-2.4); POTASSIUM 3.9 mmol/L (3.5-5.1)
[2017-01-04 08:45] LABS: CALCIUM 8.8 mg/dl (8.5-10.1)
[2017-01-04] MEDS ORDERED: FLUTICASONE PROPIONATE NA SPR 16 GM BTL NAE SCH (09:00)
--- NOTE | 2017-01-04 10:03 | PROGRESS NOTE ---
DATE: 01/04/2017 SUBJECTIVE: Mike was seen by Dr. Esteves yesterday with regards to his new onset atrial fibrillation. He describes feeling well on Wednesday night and again Wednesday morning. He notes in the mid afternoon that he noticed he was kind of weak and tired. He went to lie down. He felt palpitations and fluttering and felt his heart racing. Overall, he just did not feel well and subsequently came to the Emergency Room. He was found to be in atrial fibrillation in the Emergency Room. He was placed on IV diltiazem as well as beta blockers and IV heparin. This morning, before seeing him on the monitor, he was having pauses, some of them are with sleep and others even while awake. The longest pause while asleep was approximately 3.2 seconds and the longest pause while awake was approximately 2.4 seconds. He has a significant history of anxiety and panic attacks as well as a previous history of syncope, thought to be related to his anxiety and panic attacks. In the room, he denied any chest pain, chest pressure, or chest heaviness. He was not lightheaded or dizzy. He was hoping to go home today if at all possible, although he remains in AFib this morning. While discussing possibilities of getting him back into sinus rhythm including chemical cardioversion versus electrical cardioversion, he became more and more anxious and he became diaphoretic and then, he noted that he just did not feel well. At that point, he actually lost consciousness. He was agonally breathing and on the monitor, he had extended episodes of long pauses. After sternal rub, he came to, he was out probably 30 seconds. When he came back, he was conscious and talking. He noted he was confused. He felt weak. His blood pressure was in the 70s systolic. A brief code blue was called. Once he was conscious, it was discontinued. He was given wide open saline. His diltiazem drip was stopped. He has not received oral beta blockers since yesterday evening. He is currently mentating now without any issues. His blood sugar was in the low 100s. His blood pressure initially in the 70s systolic and is now in the low 100s systolic and he feels back to himself. The rest of the review of systems is otherwise negative. PHYSICAL EXAMINATION: GENERAL: He is awake, alert, and oriented x3. He is incredibly anxious. VITAL SIGNS: His heart rate is 62, his blood pressure is 99/59 and his sat is 95% on room air. HEENNT: 2+ carotid upstrokes. No evidence of carotid bruits. Jugular venous pressure appeared normal. His sclerae is anicteric. His hearing is normal. LUNGS: Clear to auscultation bilaterally. No rales, rhonchi or wheezing. HEART: Irregular rate and rhythm. No appreciable murmurs, rubs or gallops. ABDOMEN: Soft, nontender, and nondistended. Positive bowel sounds. EXTREMITIES: No clubbing, cyanosis or edema. PSYCHIATRIC: He is incredibly anxious. NEUROLOGIC: He is awake, alert and oriented x3. DIAGNOSTIC STUDIES: Echocardiogram from October 2011, normal biventricular size and function, EF 60%, no valvular pathology. Exercise treadmill test in October 2011, no evidence of ischemia, exercising 9 minutes, achieving a heart rate of 87% of maximum predicted for his age. There were no pauses nor associated arrhythmias. LABORATORY DATA: Hemoglobin 14.8 and platelet count 175. BUN 14, creatinine 1.1, sodium 143, and potassium 3.9. IMPRESSION: 1. New onset atrial fibrillation. 2. Severe anxiety and panic attacks. 3. Syncope this morning with a long pause and a period of apnea, lasting 30 seconds, likely mediated by his extreme anxiety. 4. Normal echocardiogram and negative ETT in 2011. 5. Likely obstructive sleep apnea with snoring and obesity and daytime somnolence. At this point, we will consult EP to get their opinion with regards to whether he would benefit from chemical cardioversion versus electrical cardioversion, especially in light of his episode this morning mediated by extreme anxiety. I did discuss with them as he is approaching 48 hours, he likely will need anticoagulation for a period of time after cardioversion and he would need low dose beta blockers to try to maintain sinus rhythm. Additionally, he would need a sleep study. The question is if he is a candidate for chemical cardioversion and the challenge will be with giving him high dose oral flecainide, he may very well have a long pause when he converts and the same issue may occur with ibutilide. Additionally, even with chemical cardioversion, there is a risk of a pause afterwards as well. I did get to the point in our conversation about discussing the risks and benefits of cardioversion. He is very averse to medications. He is also averse to having his anxiety disorder treated with medication. Further recommendations will be forthcoming from the EP service. KRISTEN
--- NOTE | 2017-01-04 10:53 | Hospitalist Progress Note ---
Hospitalist Progress Note Date of Service January 04, 2017. (Key Luz ., PAMaineC) Subjective Pt evaluation today including: conversation w/ patient, physical exam, chart review, lab review, review of studies, conversation w/ portrait consultant (spoke with Dr. Cruz), review of inpatient medication list Pain: None PO Intake: NPO Voiding: no voiding problems Prior to my examination, a code blue was called around 9 am while the patient was speaking with Dr. Cruz. The patient had a syncopal episode lasting for 20 -30 seconds which appears to be related to his history of panic attacks. The patient was discussing treatment options, including cardioversion, with Dr. Cruz when he began to feel very stressed and anxious. The patient has a history of previous syncopal episodes related to stress/panic attacks, but the patient refuses to take any anxiety medications for this. During this episode, the patient was found to be very diaphoretic and hypotensive. Diltiazem drip was stopped. The patient was given 1L bolus of NSS, and BP began to improve. BSG was 106. Afterwards, the patient stated that he was somewhat lightheaded. He denied any chest pain throughout the entire episode and denied any dyspnea, palpitations or nausea. Dr. Cruz consulted Dr. Hilliard for possible cardioversion. The patient denies fevers, chills, chest pain, palpitations, claudication, cough, wheezing, shortness of breath, nausea, vomiting, abdominal pain, dysuria, hematuria, urinary retention, paralysis, weakness, numbness and tingling. Additional Comments: See HPI for pertinent positives and negatives. All other systems reviewed and negative. (Key Luz ., BETHANY-C) Objective Vital Signs Date Time Temp Pulse Resp B/P Pulse Ox O2 Delivery O2 Flow Rate FiO2 01/04/17 07:49 36.6 62 18 99/59 95 Room Air 01/04/17 04:00 Room Air 01/04/17 03:54 36.5 57 16 115/79 95 87/49 01/04/17 00:00 Room Air 01/04/17 00:00 36.8 58 18 105/62 95 Room Air 01/03/17 20:00 Room Air 01/03/17 19:04 36.9 63 18 93/55 95 Room Air 01/03/17 16:00 Room Air 01/03/17 15:29 37.1 60 18 115/75 95 Room Air 01/03/17 12:00 Room Air 01/03/17 11:06 36.8 96 19 133/86 95 Room Air (Key Luz ., BETHANY-C) Physical Exam General Appearance: WD/WN, no apparent distress, + obese, + pertinent finding ( diaphoretic) Eyes: normal inspection, PERRL, EOMI ENT: normal ENT inspection, hearing grossly normal, pharynx normal Neck: supple, no JVD, trachea midline Respiratory/Chest: lungs clear, normal breath sounds, no respiratory distress Cardiovascular: no gallop, no murmur, + tachycardia, + irregularly irregular Abdomen: normal bowel sounds, non tender, soft Extremities: non-tender, normal inspection, no pedal edema Neurologic/Psychiatric: alert, oriented x 3, + pertinent finding (anxious) Skin: normal color, warm/dry, no rash (Key Luz ., PA-C) Laboratory Results Last 24 Hours Test 01/03/17 11:15 01/04/17 07:20 Triglycerides Level 43 mg/dl Cholesterol Level 147 mg/dl HDL Cholesterol 63 mg/dl LDL Cholesterol, Calculated 75 mg/dl VLDL Cholesterol, Calculated 9 mg/dl Cholesterol/HDL Ratio 2.3 White Blood Count 7.15 K/uL Red Blood Count 4.91 M/uL Hemoglobin 14.8 g/dL Hematocrit 42.6 % Mean Corpuscular Volume 86.8 fL Mean Corpuscular Hemoglobin 30.1 pg Mean Corpuscular Hemoglobin Concent 34.7 g/dl Platelet Count 175 K/uL Mean Platelet Volume 11.5 fL Neutrophils (%) (Auto) 53.2 % Lymphocytes (%) (Auto) 35.9 % Monocytes (%) (Auto) 9.7 % Eosinophils (%) (Auto) 0.8 % Basophils (%) (Auto) 0.3 % Neutrophils # (Auto) 3.80 K/uL Lymphocytes # (Auto) 2.57 K/uL Monocytes # (Auto) 0.69 K/uL Eosinophils # (Auto) 0.06 K/uL Basophils # (Auto) 0.02 K/uL RDW Standard Deviation 41.9 fL RDW Coefficient of Variation 13.3 % Immature Granulocyte % (Auto) 0.1 % Immature Granulocyte # (Auto) 0.01 K/uL Activated Partial Thromboplast Time 72.5 SECONDS Partial Thromboplastin Ratio 2.8 Sodium Level 143 mmol/L Potassium Level 3.9 mmol/L Chloride Level 108 mmol/L Carbon Dioxide Level 29 mmol/L Anion Gap 6.0 mmol/L Blood Urea Nitrogen 14 mg/dl Creatinine 1.10 mg/dl Est Creatinine Clear Calc Drug Dose 127.5 ml/min Estimated GFR () 88.4 Estimated GFR (Non- 76.2 BUN/Creatinine Ratio 12.8 Random Glucose 101 mg/dl Calcium Level 8.8 mg/dl Magnesium Level 1.9 mg/dl (Key Luz ., PA-C) Assessment and Plan 51 y/o male with a history of HLD and anxiety with panic attacks who presented to the ED on 01/02 with palpitations and tachycardia. EKG revealed afib with RVR , HR around 140 with inferior T waves inversions. H/o syncopal episodes which appear to be related to panic attacks/anxiety and stress. Pt has been worked up for these in 2002 and again in 2011 which was normal at that time. New onset a-fib with RVR -Admit to telemetry. Pt remains in a-fib, HR fluctuating from 50s-130s. Pt with pauses as long as 3.8s. -Diltiazem drip stopped after syncopal episode this morning -Cardiology on board, appreciate recs: Dr. Cruz consulted Dr. Hilliard for possible cardioversion. -NPO -Metoprolol tartrate 50 mg PO q6h. Last 2 doses held due to bradycardia -Echo WNL -Cardiac enzymes negative x 3 -Continue heparin drip Anxiety -Pt refuses to take medication for this despite longstanding history of panic attacks and associated syncopal episodes HLD -Continue pravastatin 40 mg PO qd DVT prophylaxis -Heparin drip Code Status -Level I, FULL RESUSCITATION STATUS (Key Luz ., BETHANY-C) I agree with PA assessment and plan and have seen and examined pt myself Resting comfortably in bed VSS Anxiety assessed Code blue cancelled this AM due to "unresponsiveness" Appreciate cards recs, medications vs cardioversion Cont current meds Will need EPS and FRAN eval (Paul Hernandez D.OSaad)
[2017-01-04] MEDS ORDERED: FLECAINIDE ACETATE 100 MG TAB PO ONE (13:15)
[2017-01-04] MEDS ORDERED: COUGH DROP (SUGAR FREE) LOZ 24 LOZ/1 BOX ONE (13:25)
[2017-01-04] MEDS ORDERED: LIDOCAINE HCL 2% 2 ML VIAL (20MG/ML) ONE (15:24)
[2017-01-04] MEDS ORDERED: PROPOFOL IV EMULSION 10 MG/ML 20 ML VIAL IV ONE (15:24)
--- NOTE | 2017-01-04 16:10 | Anesthesiology Progress Note ---
Anesthesia Post Op Note Date & Time January 04, 2017 at 16:10 Vital Signs Pain Intensity: 0 Vital Signs Past 12 Hours Date Time Temp Pulse Resp B/P Pulse Ox O2 Delivery O2 Flow Rate FiO2 01/04/17 16:05 61 18 109/74 99 Room Air Nasal Cannula 01/04/17 16:02 75 18 106/76 98 Nasal Cannula 4 01/04/17 16:00 126 18 126/91 98 Nasal Cannula 4 01/04/17 15:55 126 16 136/90 98 Nasal Cannula 4 01/04/17 15:32 36.9 109 18 127/91 95 Room Air 01/04/17 12:02 36.6 78 19 112/82 98 Room Air 01/04/17 12:00 Room Air 01/04/17 08:00 Room Air 01/04/17 07:49 36.6 62 18 99/59 95 Room Air Notes Mental Status: alert / awake / arousable, participated in evaluation Pt Amnestic to Procedure: Yes Nausea / Vomiting: adequately controlled Pain: adequately controlled Airway Patency, RR, SpO2: stable & adequate BP & HR: stable & adequate Hydration State: stable & adequate Anesthetic Complications: no major complications apparent
--- NOTE | 2017-01-04 16:34 | CARDIOVERSION ---
DATE OF OPERATION: 01/04/2017 DATE OF SERVICE: 01/04/2017. PROCEDURE PERFORMED: Electrocardioversion. STAFF [employer] OPERATOR: Venkatesh Hilliard. INDICATION: Mr. Mike Lopez is a 51-year-old gentleman who was admitted with an episode of atrial fibrillation. An attempt was made to convert him chemically with flecainide but this failed. As such, he was referred for electrical cardioversion. PROCEDURE IN DETAIL: The patient was informed of the risks, benefits and alternatives of to the intended procedure. He understood such risk to proceed. He was taken to the cardiac catheterization suite where a general anesthetic was administered. Once appropriately anesthetized the patient underwent cardioversion with 200 joules delivered in a biphasic fashion. This returned him to a normal sinus rhythm which was confirmed with an EKG. The patient tolerated the procedure well. There were no neurologic complications. IMPRESSION: Successful cardioversion from atrial fibrillation to normal sinus rhythm. I attest to the content of the Intraoperative Record and any orders documented therein. Any exceptio ns are noted below.
--- NOTE | 2017-01-04 17:32 | CARDIOLOGY CONSULTATION ---
DATE OF CONSULTATION: 01/04/2017 EP CONSULTATION REPORT REFERRING PHYSICIAN: Lex Cruz DO. CHIEF COMPLAINT: Palpitations. HISTORY OF PRESENT ILLNESS: Mr. Mike Lopez is a 51-year-old gentleman without a known cardiac history who first experienced the onset of "not feeling well" over a day ago. This was subsequently followed by a sense of dizziness and a need to lie down. The patient eventually noted that his heart rate was irregular and quite high and eventually proceeded to [facility] for further evaluation. At that facility, he was noted to have atrial fibrillation and rapid ventricular response. He was hemodynamically stable and placed on observation. An attempt was made at rate control with both oral metoprolol and an intravenous diltiazem infusion. This morning, the patient did suffer an episode of significant bradycardia with a brief loss of consciousness. The patient was also noted to be hypotensive at that time. This occurred during a conversation regarding possible options for his atrial fibrillation including electrical cardioversion. The patient also reported feeling somewhat hot and diaphoretic at that time. Subsequent to this episode, the patient was quite fatigued. Interestedly, he has a history of recurrent syncope. This dates back to his childhood. Generally speaking, this is situational in nature and a prior workup did not reveal any cardiac abnormalities or distinct etiology. 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 PAST MEDICAL AND SURGICAL HISTORY: Significant for syncope as mentioned, hypercholesterolemia, history of anxiety and cataract. OUTPATIENT MEDICATIONS: Include aspirin and pravastatin. MEDICAL ALLERGIES: None. FAMILY HISTORY: His mother who is elderly, does have atrial fibrillation. His brother does have a history of coronary disease in his 50s. SOCIAL HISTORY: The patient is and lives locally. 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 Denies significant tobacco or alcohol use. REVIEW OF SYSTEMS: A complete 12-point review of systems was performed and the pertinent positives noted in the history of present illness and the remainder being negative. PHYSICAL EXAMINATION: GENERAL: The patient does not appear in acute distress. He is a pleasant individual who is alert and oriented. His mood and affect appeared normal. VITAL SIGNS: Include blood pressure of 112/82 with pulse of 78. HEENT: Sclerae are anicteric. His pupils were equal, reactive to light and accommodation. Extraocular movements were intact. NECK: Palpation of submandibular region did not reveal any significant lymphadenopathy. The carotids are palpable bilaterally. There are no bruits on auscultation. I did not appreciate any jugular venous distention. Thyroid is not enlarged. LUNGS: Auscultation of both lung saxena reveal them to be clear. There were no rales, wheezes or rhonchi. He had normal respiratory effort without use of accessory muscles. CARDIAC: Revealed him to be in regular rhythm. I did not appreciate any murmurs. PMI was not displaced on palpation. ABDOMEN: Soft and nontender. EXTREMITIES: Evaluation both wrists revealed radial pulses that were equal in intensity. There is no evidence of cyanosis or clubbing. Evaluation of his lower extremities did not reveal any significant peripheral edema. There are no rashes on exam. LABORATORY STUDIES: Obtained today include a white cell count of 7.1, a hemoglobin of 14.8, and a platelet count of 175. Sodium is 143, potassium is 3.9, BUN was 14 and creatinine was 1.1. IMAGING DATA: Serial 12-lead EKGs were obtained which revealed the patient to be in atrial fibrillation. Review of his telemetry does reveal periods of relative bradycardia with some brief periods of ventricular asystole lasting up to 3 seconds in duration. Did review the strips from his syncopal event which revealed a gradual slowing in the ventricular rate and a period of relative asystole. Echocardiogram was performed on 01/03/2017. This revealed preserved left ventricular systolic function and mild mitral regurgitation. ASSESSMENT AND PLAN: 1. Atrial fibrillation, persistent, the patient has some mild symptoms associated with the arrhythmia and high ventricular rates. The etiology of his atrial fibrillation is unclear. He does not report significant risk factors or symptoms consistent with obstructive sleep apnea, although this is still a remote possibility. He does not have a history of significant alcohol use and his echocardiogram suggests only a mild degree of mitral regurgitation. There is a very small chance that this could be an inherited form of atrial fibrillation, although his mother's atrial fibrillation occurred quite late in life and is most likely just age related. He does not have a history of notable hypertension. He may have had an element of sleep depravation recently, but overall there is no obvious etiology for his atrial fibrillation at this stage. Given the single episode, it would seem reasonable to return him to sinus rhythm. He has not converted spontaneously and efforts will to be taken today in order to affect to return to sinus rhythm. We will first start with dose of flecainide and if that is unsuccessful electrocardioversion will be performed later today. With respect to anticoagulation, his CHADS2-VASc score is 0. He has had an episode for less than 48 hours currently and therapeutically anticoagulated since admission. As such, I think we can safely perform cardioversion and forego any anticoagulation subsequent to the return to sinus rhythm at this point. 2. Syncope. The patient has a history of recurrent syncope and today's episode was quite consistent with neurocardiogenic syncope or situational syncope. He was quite anxious during this conversation regarding therapeutic options. He had some symptoms associated with high vagal output and this was manifested both by a drop in ventricular rate as well as blood pressure. After which he was quite fatigued. I think this is overall benign etiology of syncope. He is noted to have normal left ventricular function and standard precautions for aborting or avoiding neurocardiogenic syncope recommend. 3. Mitral regurgitation: Mild. MTDD
--- NOTE | 2017-01-04 18:00 | Discharge Instructions ---
Discharge Instructions Date of Service January 04, 2017. Admission Reason for Admission: New Onset A-Fib Discharge Discharge Diagnosis / Problem: New onset atrial fibrillation Discharge Goals Goal(s): Decrease discomfort, Improve function, Increase independence, Improve disease control, Improve nutritional status, Learn about illness, Diagnostic testing, Therapeutic intervention Activity Recommendations Activity Limitations: resume your previous activity Exercise/Sports Limitations: none . Instructions / Follow-Up Instructions / Follow-Up Patient to be discharged home Patient diagnosed with atrial fibrillation corrected with cardioversion No additional medications per cardiology If worsening chest pain, shortness of breath or palpitations please report to ER Please follow up with Dr Cruz in 1-2 weeks Current Hospital Diet Patient's current hospital diet: AHA Diet (Heart Healthy) Discharge Diet Recommended Diet: AHA Diet (Heart Healthy) Pending Studies Studies pending at discharge: no Laboratory Results Lipid Panel Test 01/03/17 11:15 Range/Units Triglycerides Level 43 0-150 mg/dl Cholesterol Level 147 0-200 mg/dl HDL Cholesterol 63 mg/dl Cholesterol/HDL Ratio 2.3 LDL Cholesterol, Calculated 75 mg/dl Medical Emergencies . Who to Call and When: Medical Emergencies: If at any time you feel your situation is an emergency, please call 911 immediately. . Non-Emergent Contact Non-Emergency issues call your: Primary Care Provider Call Non-Emergent contact if: your pain is worsening . . "Provider Documentation" section prepared by Paul Hernandez. . VTE Core Measure Inpt VTE Proph given/why not?: Other Anticoagulation
--- NOTE | 2017-01-04 18:04 | Discharge Summary ---
Discharge Summary Date of Service January 04, 2017. Discharge Summary Admission Date: Jan 02, 2017 at 21:45 Discharge Date: January 04, 2017 Discharge Disposition: Home Principal Diagnosis: new onset atrial fibrtillation Problems/Secondary Diagnoses: (1) Hyperlipidemia Status: Chronic (2) Panic disorder Status: Chronic Consultations: cardiology Medication Reconciliation Continued Medications: Aspirin Enteric Coated (Ecotrin Or Generic) 81 Mg Tab 81 MG PO DAILY, 0 Refills Clotrimazole (Lotrimin 1%) 90 Appln/30 Gm Cr 1 APPLN TOP BID for FEET Pravastatin Sodium (Pravastatin Sodium) 40 Mg Tab 40 MG PO HS Triamcinolone Acetonide (Nasal (Nasacort Allergy 24Hr) 55 Mcg/Act Spr 2 SPRAYS EDI DAILY Discharge Exam Review of Systems: Constitutional: No chills, No fever Respiratory: No cough, No shortness of breath, No sputum Cardiovascular: No chest pain, No orthopnea Abdomen: No nausea, No pain Musculoskeletal: No joint pain, No muscle pain Genitourinary - Male: No hematuria, No urinary frequency Neurologic: No paralysis, No weakness Physical Exam: General Appearance: WD/WN, no apparent distress Neck: supple, no adenopathy Respiratory/Chest: chest non-tender, lungs clear Cardiovascular: regular rate, rhythm, no edema Abdomen / GI: non tender, soft Extremities: normal inspection, no calf tenderness Neurologic/Psychiatric: alert, oriented x 3 Hospital Course 51 y/o male with a history of HLD and anxiety with panic attacks who presented to the ED on 01/02 with palpitations and tachycardia. EKG revealed afib with RVR , HR around 140 with inferior T waves inversions. H/o syncopal episodes which appear to be related to panic attacks/anxiety and stress. Pt has been worked up for these in 2002 and again in 2011 which was normal at that time. New onset a-fib with RVR -Admit to telemetry. Pt remains in a-fib, HR fluctuating from 50s-130s. Pt with pauses as long as 3.8s. -Diltiazem drip stopped after syncopal episode this morning - Cont on BB -Cardiology on board, appreciate recs: Dr. Butler consulted Dr. Hilliard for possible cardioversion completed on 01/04 with success, discharged home, no AC or rate control needed -Echo WNL -Cardiac enzymes negative x 3 -Continue heparin drip Anxiety -Pt refuses to take medication for this despite longstanding history of panic attacks and associated syncopal episodes HLD -Continue pravastatin 40 mg PO qd DVT prophylaxis -Heparin drip Code Status -Level I, FULL RESUSCITATION STATUS Total Time Spent: Greater than 30 minutes This includes examination of the patient, discharge planning, medication reconciliation, and communication with other providers. Discharge Instructions Please refer to the electronic Patient Visit Report (Discharge Instructions) for additional information. Follow-Up Dr husam james in1 -[address] butler in 1 -2 weeks
[2017-01-04] MEDS ORDERED: METOPROLOL TARTRATE 25 MG TAB PO SCH (21:00)
[2017-05-12] MEDS ORDERED: METO25TA3 PO (09:22)
[2017-05-12] MEDS ORDERED: LORA-741 PO (09:34)
[2017-05-24] MEDS ORDERED: CETI10TA84 PO (12:33)
== END 2017-01-04 19:20 | disposition home or self-care (01) | DRG 310 ==
LOC: ENRESERVTM → ENRESERVDT → C.EDB 19:43 → C.2T 21:45
PROVIDERS: ADMIT Internal Medicine; ATTEND Hospitalist
PROC: 5A2204Z Restoration of Cardiac Rhythm, Single (ICD-10-PCS; principal; 2017-01-04 16:00)
DX: I48.91 Unspecified atrial fibrillation (principal); E78.00 Pure hypercholesterolemia, unspecified; E78.5 Hyperlipidemia, unspecified; G47.33 Obstructive sleep apnea (adult) (pediatric); F41.0 Panic disorder [episodic paroxysmal anxiety]; I34.0 Nonrheumatic mitral (valve) insufficiency; E66.9 Obesity, unspecified; R09.82 Postnasal drip; R55 Syncope and collapse; R94.31 Abnormal electrocardiogram [ECG] [EKG]; Z53.29 Procedure and treatment not carried out because of patient's decision for other reasons; Z82.49 Family history of ischemic heart disease and other diseases of the circulatory system; Z79.82 Long term (current) use of aspirin; Z68.35 Body mass index [BMI] 35.0-35.9, adult; Z79.899 Other long term (current) drug therapy; Z79.51 Long term (current) use of inhaled steroids

== ENCOUNTER → 2017-05-24 | Day surgery (SDC) | payer BC ==
[2017-05-12 09:23] VITALS: BMI 34.0
[~2017-05-24] VITALS: Ht 203.2 cm; Wt 144.1 kg
[~2017-05-24] MED LIST changes: +CETI10TA84 PO; +LIDOCAINE HCL 2% 2 ML VIAL (20MG/ML) ONE; +LORA-741 PO; +LTRCR30 TOP; +METO25TA3 PO; +MIDAZOLAM HCL 1 MG/ML 2ML VIAL ONE; +PRAV40TA2 PO; +PROPOFOL IV EMULSION 10 MG/ML 20 ML VIAL IV ONE; -SERT50TA PO; +SODIUM CHLORIDE 0.9% 500ML 500 ML IV ONE; +TRIA1SPR4 NAE
[2017-05-24 12:34] VITALS: Ht 203.2 cm; Wt 144.1 kg
--- NOTE | 2017-05-24 13:11 | Endo History and Physical ---
History & Physical Date of Service: May 24, 2017. Chief Complaint: SCREENING FOR COLON CANCER Referring Physician: DR APRIL CHEUNG History of Present Illness screening colonoscopy Past Surgical History Hx Cardiac Surgery: Yes (CARDIOVERSION) Hx Internal Defibrillator: No Hx Pacemaker: No Hx Abdominal Surgery: No Hx of Implantable Prosthesis: No Hx Post-Op Nausea and Vomiting: No Hx Cancer Surgery: No Hx Thoracic Surgery: No Hx Orthopedic: No Hx Urinary Tract Surgery: No Family History None Social History Smoking Status: Never Smoker Hx Substance Use: No Hx Alcohol Use: No Allergies Coded Allergies: No Known Allergies (Verified , 05/24/17) Current Medications Reported Home Medications Medications Dose Route/Sig Max Daily Dose Days Date Category Zyrtec (Cetirizine HCl) 10 Mg Tab 10 Mg PO DAILY PRN 05/24/17 Reported Ativan (Lorazepam) 0.5 Mg Tab 0.5 Mg PO TID PRN 05/12/17 Reported Toprol-Xl (Metoprolol Succinate) 25 Mg Tabcr 0.5 Tab PO HS 05/12/17 Reported Lotrimin 1% (Clotrimazole) 90 Appln/30 Gm Cr 1 Appln TOP BID 01/02/17 Reported Nasacort Allergy 24Hr (Triamcinolone Acetonide (Nasal) 55 Mcg/Act Spr 2 Sprays EDI DAILY 01/02/17 Reported Pravastatin Sodium 40 Mg Tab 40 Mg PO HS 12/09/12 Reported Ecotrin Or Generic (Aspirin) 81 Mg Tab 81 Mg PO HS 01/09/12 Reported Vital Signs Weight (Kilograms): 144.09 Height (Feet): 6 Height (Inches): 8 Date Time Temp Pulse Resp B/P (MAP) Pulse Ox O2 Delivery O2 Flow Rate FiO2 05/24/17 12:34 36.8 80 18 184/98 (126) 99 Room Air Physical Exam AAOx3 Nl s1s2 Lungs CTA Abd soft NT/ND -CCE Assessment and Plan colonoscopy
--- NOTE | 2017-05-24 13:54 | Discharge Instructions ---
Endoscopy Patient Instructions Date / Procedure(s) Performed May 24, 2017. Colonoscopy Allergy Information Coded Allergies: No Known Allergies (Verified , 05/24/17) Discharge Date / Findings May 24, 2017. normal colon Medication Instructions Stopped Medication(s): TOOK ASPIRIN 05/23/17 Restart Stopped Medication(s): Reported Home Medications Medications Dose Route/Sig Max Daily Dose Days Date Category Zyrtec (Cetirizine HCl) 10 Mg Tab 10 Mg PO DAILY PRN 05/24/17 Reported Ativan (Lorazepam) 0.5 Mg Tab 0.5 Mg PO TID PRN 05/12/17 Reported Toprol-Xl (Metoprolol Succinate) 25 Mg Tabcr 0.5 Tab PO HS 05/12/17 Reported Lotrimin 1% (Clotrimazole) 90 Appln/30 Gm Cr 1 Appln TOP BID 01/02/17 Reported Nasacort Allergy 24Hr (Triamcinolone Acetonide (Nasal) 55 Mcg/Act Spr 2 Sprays EDI DAILY 01/02/17 Reported Pravastatin Sodium 40 Mg Tab 40 Mg PO HS 12/09/12 Reported Ecotrin Or Generic (Aspirin) 81 Mg Tab 81 Mg PO HS 01/09/12 Reported Reported Home Medications Medications Dose Route/Sig Max Daily Dose Days Date Category Zyrtec (Cetirizine HCl) 10 Mg Tab 10 Mg PO DAILY PRN 05/24/17 Reported Ativan (Lorazepam) 0.5 Mg Tab 0.5 Mg PO TID PRN 05/12/17 Reported Toprol-Xl (Metoprolol Succinate) 25 Mg Tabcr 0.5 Tab PO HS 05/12/17 Reported Lotrimin 1% (Clotrimazole) 90 Appln/30 Gm Cr 1 Appln TOP BID 01/02/17 Reported Nasacort Allergy 24Hr (Triamcinolone Acetonide (Nasal) 55 Mcg/Act Spr 2 Sprays EDI DAILY 01/02/17 Reported Pravastatin Sodium 40 Mg Tab 40 Mg PO HS 12/09/12 Reported Ecotrin Or Generic (Aspirin) 81 Mg Tab 81 Mg PO HS 01/09/12 Reported Provider Instructions Activity Restrictions - No exercising or heavy lifting for 24 hours. - Do not drink alcohol the day of the procedure. - Do not drive a car or operate machinery until the day after the procedure. - Do not make any important decisions or sign important papers in 24 hours after the procedure. Following Day: - Return to full activity which may include returning to work/school. Diet Start your diet with liquids and light foods (jello, soup, juice, toast). Then eat your usual diet if not nauseated. Treatment For Common After Affects For mild abdominal pain, bloating, or excessive gas: - Rest - Eat lightly - Lie on right side Follow-Up Information Follow-up with DR APRIL CHEUNG as scheduled Anesthesia Information What You Should Know You have had a procedure that required some medicine to reduce anxiety and discomfort. This treatment is called moderate sedation. After receiving the treatment, you may be sleepy, but you will be able to breathe on your own. The effects of the treatment may last for several hours. Follow these instructions along with Activity/Diet recommendations noted above: * Do NOT do anything where dizziness or clumsiness would be dangerous. * Rest quietly at home today, then you can be up and about tomorrow. * Have a responsible person stay with you the rest of today. * You may have had an I.V. today. If so, you may take the dressing off later today. Recommendations Call your doctor if: * Trouble breathing * Continuous vomiting for more than 24 hours * Temperature above 101 degrees * Severe abdominal pain or bloating * Pain not relieved by pain medicine ordered * There is increased drainage or redness from any incision * A large amount of rectal bleeding greater than 2-3 tablespoons. (If you had a polyp/s removed or have hemorrhoids, a small amount of blood - from the rectum is to be expected.) * You have any unanswered questions or concerns. IN THE EVENT OF A SERIOUS EMERGENCY, GO TO THE NEAREST EMERGENCY ROOM Your discharge instructions were prepared by provider Berny Gutierrez. Patient Instructions Signature Page Mike Lopez Patient (or Guardian) Signature/Date: I have read and understand the instructions given to me by my caregivers. Caregiver/RN/Doctor Signature/Date: The above-named patient and/or guardian has received patient instructions on this date. + Original Patient Signature Page (only) stays with chart. Please make copy for patient.
--- NOTE | 2017-05-24 13:57 | GI REPORT ---
Procedure Date: 05/24/2017 1:14 PM THIS REPORT HAS BEEN AMENDED Addendum Number: 1 Addendum Date: 05/24/2017 3:16:30 PM Faint pattern suggestive of melanosis coli detected during exam. Pt does not use senna or aloe based products orally. Procedure: Colonoscopy Indications: Screening for colorectal malignant neoplasm, This is the patient's first colonoscopy Medicines: Propofol per Anesthesia Complications: No immediate complications. Estimated blood loss: None. Estimated Blood Loss: Estimated blood loss: none. Procedure: Pre-Anesthesia Assessment: - Prior to the procedure, a History and Physical was performed, and patient medications and allergies were reviewed. The patient's tolerance of previous anesthesia was also reviewed. The risks and benefits of the procedure and the sedation options and risks were discussed with the patient. All questions were answered, and informed consent was obtained. Prior Anticoagulants: The patient has taken no previous anticoagulant or antiplatelet agents. ASA Grade Assessment: II - A patient with mild systemic disease. After reviewing the risks and benefits, the patient was deemed in satisfactory condition to undergo the procedure. After I obtained informed consent, the scope was passed under direct vision. Throughout the procedure, the patient's blood pressure, pulse, and oxygen saturations were monitored continuously. The scope was introduced through the anus and advanced to the terminal ileum, with identification of the appendiceal orifice and IC valve. The colonoscopy was performed without difficulty. The patient tolerated the procedure well. The quality of the bowel preparation was fair. Findings: The perianal and digital rectal examinations were normal. Pertinent negatives include normal sphincter tone, no palpable rectal lesions and no anal lesion or abnormality was detected. The ileum and colon (entire examined portion) appeared normal. The retroflexed view of the distal rectum and anal verge was normal and showed no anal or rectal abnormalities. Seeds and residual frequently clogged scope however all area with residue flushed and not mucosal lesions identified. Impression: - The terminal ileum and entire examined colon are normal. - The distal rectum and anal verge are normal on retroflexion view. - No specimens collected. Recommendation: - Discharge patient to home (ambulatory). - Resume regular diet. - Continue present medications. - Repeat colonoscopy in 10 years for screening purposes. - Return to referring physician as previously scheduled. MD Berny Gamino MD 05/24/2017 1:57:02 PM This report has been signed electronically. Note Initiated On: 05/24/2017 1:14 PM I attest to the content of the Intraoperative Record and orders documented therein, exceptions below MD Berny Gamino MD 05/24/2017 3:17:26 PM This report has been signed electronically.
--- NOTE | 2017-05-24 14:21 | Anesthesiology Progress Note ---
Anesthesia Post Op Note Date & Time May 24, 2017 at 14:21 Vital Signs Pain Intensity: 0 Vital Signs Past 12 Hours Date Time Temp Pulse Resp B/P (MAP) Pulse Ox O2 Delivery O2 Flow Rate FiO2 05/24/17 14:07 58 18 121/75 (90) 93 Room Air 05/24/17 14:00 60 16 112/57 (75) 94 Room Air 05/24/17 12:34 36.8 80 18 184/98 (126) 99 Room Air Notes Mental Status: alert / awake / arousable, participated in evaluation Pt Amnestic to Procedure: Yes Nausea / Vomiting: adequately controlled Pain: adequately controlled Airway Patency, RR, SpO2: stable & adequate BP & HR: stable & adequate Hydration State: stable & adequate Anesthetic Complications: no major complications apparent
[2017-05-24 14:26] VITALS: BP 119/58; PULSE 58; O2SAT 96
== END | disposition home or self-care (01) ==
LOC: C.GI 12:12
PROVIDERS: ATTEND Internal Medicine Gastroenterology
DX: Z12.11 Encounter for screening for malignant neoplasm of colon (principal); Z79.82 Long term (current) use of aspirin; I10 Essential (primary) hypertension; E78.5 Hyperlipidemia, unspecified; F41.9 Anxiety disorder, unspecified; E66.9 Obesity, unspecified

== ENCOUNTER → 2017-08-03 | Outpatient (CLI) | payer BC ==
[~2017-08-03] MED LIST changes: -LIDOCAINE HCL 2% 2 ML VIAL (20MG/ML) ONE; -MIDAZOLAM HCL 1 MG/ML 2ML VIAL ONE; -PROPOFOL IV EMULSION 10 MG/ML 20 ML VIAL IV ONE; -SODIUM CHLORIDE 0.9% 500ML 500 ML IV ONE
== END | disposition home or self-care (01) ==
LOC: C.RDSM 11:43
PROVIDERS: ATTEND Orthopaedic Surgery Sports Medicine
DX: M67.441 Ganglion, right hand (principal)

== ENCOUNTER → 2017-08-27 | Day surgery (SDC) | payer BC ==
[2017-08-06 11:39] VITALS: Ht 203.2 cm; Wt 144.1 kg
[~2017-08-27] VITALS: Ht 203.2 cm; Wt 144.1 kg
[~2017-08-27] MED LIST changes: +ATROPINE SULFATE 0.1 MG/ML 5ML SYR IV PRN; +BUPIVACAINE 0.5 % 5 MG/1 ML PF 10ML VIAL ONE; +CEFAZOLIN 3000MG IV PUSH 15 ML IV SCH; +DEXAMETHASONE SOD INJ 4 MG/ML VIAL ONE; +EpHEDrine SULFATE INJ 50 MG/ML AMP IV PRN; +FENTANYL CITRATE INJ 50 MCG/1 ML 2 ML VIAL IV PRN; +FENTANYL CITRATE INJ 50 MCG/1 ML 2 ML VIAL ONE; +KETOROLAC TROMETHAMINE 30 MG/ML VIAL IV. PRN; +LACTATED RINGER'S 1000ML 1,000 ML IV SCH; +LIDOCAINE HCL 1% 20 ML VIAL ONE; +LIDOCAINE HCL 2% 2 ML VIAL (20MG/ML) ONE; +MIDAZOLAM HCL 1 MG/ML 2ML VIAL ONE; +MoRPHine SULFATE 2 MG/ML CARP IV PRN; +MoRPHine SULFATE 4 MG/ML 1 ML CARP\\VIAL IV PRN; +ONDANSETRON INJ 2 MG/ML 2 ML VIAL IV PRN; +ONDANSETRON INJ 2 MG/ML 2 ML VIAL ONE; +OXYCODONE/ACETAMINOPHEN 5-325 TAB PO PRN; +PROPOFOL IV EMULSION 10 MG/ML 20 ML VIAL IV ONE
--- NOTE | 2017-08-27 13:12 | History & Physical Bridge - SC ---
H&P Re-Evaluation Bridge Note: I have examined the patient, reviewed the History & Physical and in the interval since the performance of the History & Physical I have noted the following changes of clinical significance: No changes noted
--- NOTE | 2017-08-27 16:50 | [facility] Post Operative Brief Note ---
Immediate Operative Summary Operative Date Aug 27, 2017. Pre-Operative Diagnosis Right Middle Finger Cyst Post-Operative Diagnosis Same Procedure(s) Performed Right Middle Finger Cyst Excision Surgeon Dr. Jones Traffic Investigator Surgeon(s) Amrik Simon, Fellow Estimated Blood Loss 5 ml Findings As above Specimens A.) Right Middle Finger Cyst Drains n/a Anesthesia Local + sedation Complication(s) None Disposition Recovery Room / PACU
[2017-08-27 16:51] VITALS: TEMP 36.3
--- NOTE | 2017-08-27 16:53 | [facility] Operative Report ---
Operative Report Operative Date Aug 27, 2017. Pre-Operative Diagnosis Right Middle Finger Cyst Post-Operative Diagnosis Same Procedure(s) Performed Right Middle Finger Cyst Excision Surgeon Dr. Jones Signs Sales Representative Surgeon(s) Amrik Simon, Fellow Estimated Blood Loss 5 ml Findings Rubbery firm soft tissue mass over the dorsum of the right middle finger near the nail matrix. Fluids (cc crystalloids) 800 Specimens A.) Right Middle Finger Cyst Drains n/a Anesthesia Local + sedation Complication(s) None Disposition Recovery Room / PACU (Stable) Implants n/a Indications The patient is a 52 year old male with a painful mass on her right middle finger , that has not responded to conservative treatment and has been re-current. The patient understands the risks of surgery, which include but are not limited to: bleeding, infection, re-operation, damage to nerves and arteries, and continued pain. The patient understands all of these instructions and explanations, all of their questions have been satisfactorily addressed. The patient has elected to proceed with surgery and the informed consent was signed. Description of Procedure The patient was taken to the Operating Room and placed in the supine position on the operating table. After a multidisciplinary time-out was performed identifying my initials on the right upper extremity as the correct and operative limb, the patient agreed. Prior to the incision being made, 3 gram[s ] of intravenous Ancef was given. The right upper extremity was prepped and draped in the usual Orthopaedic sterile fashion. A digital block was performed using 1% lidocaine and half percent Marcaine plain placing 6 cc over the volar aspect of the right middle finger metacarpal head in the standard fashion. The same 50-50 mixture was used and 1 cc was injected over the planned dorsal incision. After the local anesthetic had taken affect, a small 2 cm incision was made over the mass. The mass was freed and excised using a combination of blunt dissection, tenotomy, freer, and sharp dissection with a knife. There was no appreciable stock. This was taken down to the level of his nail. The surrounding skin and soft tissue were curetted. There was normal-appearing tissue remaining. The finger tourniquet was released. Hemostasis was obtained with electrocautery and compression. The wound was copiously irrigated. The skin was closed with simple 4-0 Nylon. The distal 1-2 mm was unable to be closed due to the thinness of the skin, this was overlying the nail. The incision was covered with Xeroform, 2 x 2's, 1 inch sterile [place], and [place] and. The sponge and needle counts were correct. POSTOPERATIVE INSTRUCTIONS: The patient will remove the bandage in 2 days. The patient will follow-up in 10-15 days. I attest to the content of the Intraoperative Record and any orders documented therein. Any exceptions are noted below.
--- NOTE | 2017-08-27 16:53 | Discharge Instructions-SurgCtr ---
Discharge Instructions Date of Service Aug 27, 2017. Visit Reason for Visit: Right Middle Finger Cyst Discharge Discharge Diagnosis / Problem: status post excision mass Right Middle finger Discharge Goals Goal(s): Decrease discomfort Activity Recommendations Activity Limitations: per Instructions/Follow-up section Shower/Bathe: may shower/bathe in 3 days Driving or Machine Use: Not while on Narcotics Anesthesia . Post Anesthesia Instructions: If you have had General Anesthesia or IV Sedation: * Do not drive today. * Resume driving when surgeon permits. * Do not make important decisions or sign legal documents today. * Call surgeon for: 1. Temperature elevations greater than 101 degrees F. 2. Uncontrollable pain. 3. Excessive bleeding. 4. Persistent nausea and vomiting. 5. Medication intolerance (nausea, vomiting or rash). * For nausea and vomiting use only clear liquids such as: tea, soda, bouillon until nausea subsides, then gradually increase diet as tolerated. * If you have any concerns or questions, call your surgeon's office. If physician is unavailable and it is an emergency, call 911 or go to the nearest emergency room. . Instructions / Follow-Up Instructions / Follow-Up Dr. Jones in 10-15 days. Diet Recommendations Home Diet: resume previous diet Procedures Procedures Performed: Right Middle Finger Cyst Excision Pending Studies Studies pending at discharge: no Work Instructions Return To Work: 2 days Medical Emergencies . Who to Call and When: Medical Emergencies: If at any time you feel your situation is an emergency, please call 911 immediately. . Non-Emergent Contact Non-Emergency issues call your: Surgeon Call Non-Emergent contact if: temperature is above 101.5, your pain is not controlled, wound has increased drainage, wound has increased redness . . "Provider Documentation" section prepared by Matt Jones. .
--- NOTE | 2017-08-27 17:15 | Anesthesia Progress Nt - [facility] ---
Anesthesia Post Op Note Date & Time Aug 27, 2017 at 17:15 Vital Signs Pain Intensity: 0 Vital Signs Past 12 Hours Date Time Temp Pulse Resp B/P (MAP) Pulse Ox O2 Delivery O2 Flow Rate FiO2 08/27/17 16:51 36.3 57 16 116/68 (84) 96 Room Air 08/27/17 12:30 36.6 73 16 136/87 (103) 96 Room Air Notes Mental Status: alert / awake / arousable, participated in evaluation Pt Amnestic to Procedure: Yes Nausea / Vomiting: adequately controlled Pain: adequately controlled Airway Patency, RR, SpO2: stable & adequate BP & HR: stable & adequate Hydration State: stable & adequate Anesthetic Complications: no major complications apparent
[2017-08-27 17:23] VITALS: BP 121/85; PULSE 56; O2SAT 96
--- NOTE | 2017-09-09 06:48 | EDITING REQUIRED CODING QUERY ---
CODING CLARIFICATION Please clarify below the size of the cyst that was excised: ( x ) LESS THAN 1.5 CM ( ) GREATHER THAN 1.5 CM ( ) OTHER, PLEASE CLARIFY: Thank you for your assistance, Chary Fontana - Technical Services Rep
== END | disposition home or self-care (01) ==
LOC: X.SURG 12:16
PROVIDERS: ATTEND Orthopaedic Surgery Sports Medicine
DX: L72.3 Sebaceous cyst (principal); I48.91 Unspecified atrial fibrillation; I10 Essential (primary) hypertension; E78.5 Hyperlipidemia, unspecified

== ENCOUNTER 2019-07-31 23:17 | Inpatient (IN) ==
[2019-07-31] MEDS: LORazepam 0.5 MG TAB PO STA (23:49)
[2019-07-31 23:56] LABS: Basophils # (auto) 0.01 K/uL (0-0.2); Basophils % (auto) 0.1 %; Eosinophils # (auto) 0.06 K/uL (0-0.5); Eosinophils % (auto) 0.6 %; Hemoglobin 15.7 g/dL (14.0-18.0); Immature Granulocytes # (auto) 0.02 K/uL (0.00-0.02); Immature Granulocytes % (auto) 0.2 %; Lymphocytes # (auto) 1.52 K/uL (1.2-3.4); Lymphocytes % (auto) 14.5 %; Mean Corpuscular Hemoglobin 30.9 pg (25-34); Mean Corpuscular Hgb Conc 35.7 g/dL (32-36); Mean Corpuscular Volume 86.6 fL (80-100); Mean Platelet Volume 11.3 fL (7.4-10.4); Monocytes # (auto) 0.51 K/uL (0.11-0.59); Monocytes % (auto) 4.9 %; Neutrophils # (auto) 8.37 K/uL (1.4-6.5); Neutrophils % (auto) 79.7 %; Platelet Count 192 K/uL (130-400); RDW Coefficient of Variation 12.8 % (11.5-14.5); RDW Standard Deviation 40.8 fL (36.4-46.3); Red Blood Count 5.08 M/uL (4.7-6.1); White Blood Count 10.49 K/uL (4.8-10.8)
[2019-08-01] MEDS ORDERED: dilTIAZem HCl 5 MG/ML 5 ML VIAL IV STA (00:04)
[2019-08-01 00:05] LABS: BUN Creatinine Ratio 21.4 (10-20); Calcium 9.4 mg/dl (8.5-10.1); Creatinine Clr Calc Pharmacy 132.1 ml/min; Est GFR (African American) 92.6; Est GFR (Non-African American) 79.9; Magnesium 1.9 mg/dl (1.8-2.4); Potassium 3.7 mmol/L (3.5-5.1)
[2019-08-01] MEDS ORDERED: HEPARIN SOD (PORCINE) 1000 UNIT/ML 10 ML VIAL ONE (00:12)
[2019-08-01 00:15] LABS: INR 1.2 (0.9-1.1); Partial Thromboplastin Ratio 1.1; Partial Thromboplastin Time 28.8 Seconds (21.0-31.0); Prothrombin Time 12.4 Seconds (9.0-12.0)
[2019-08-01] MEDS ORDERED: dilTIAZem HCl 125 MG in DEXTROSE 5% 100 ML IV SCH (00:15)
[2019-08-01] MEDS ORDERED: HEPARIN SODIUM/DEXTROSE 25,000 UNITS/500 ML BAG IV SCH (00:15)
[2019-08-01 00:16] LABS: Albumin Globulin Ratio 1.1 (0.9-2); Bilirubin,Total 0.3 mg/dl (0.2-1); Globulin 3.7 gm/dl (2.5-4.0); Thyroid Stimulating Hormone 2.15 uIu/ml (0.300-4.500); Total Protein 7.7 gm/dl (6.4-8.2)
[2019-08-01] MEDS ORDERED: POTASSIUM CHLORIDE 20 MEQ TABCR PO STA (00:24)
[2019-08-01] MEDS: LORazepam 0.5 MG TAB PO STA (00:25)
--- NOTE | 2019-08-01 01:09 | History & Physical Report ---
Date of Service August 01, 2019 Assessment & Plan (1) Atrial fibrillation with RVR: Atrial fibrillation with RVR/PAF/hypertension- The patient will be admitted to telemetry for serial cardiac enzymes, serial EKG's, cardiac rhythm monitoring and a 2-D echocardiogram with Dopplers. He was given Cardizem 10 mg IV push, and started on Cardizem drip at 5 mg/h. We will place on IV fluids normal saline plus potassium chloride 20 mEq at 100 mils per hour. Of note, he reports that his mother has developed PAF in her 70s, and was noted to be bradycardic with heart rate in the 40s when the PAF stroke. Would not aggressively pursue rate control in his case tonight, and allow cardiology to make further assessment of potential tachybradycardia syndrome. The patient does report episodes of syncope and near syncope, that can be related to his rapid heart responses, but unclear timing. Consult cardiology Dr. Hilliard. Present on Admission?: Yes (2) Paroxysmal atrial fibrillation: See above Present on Admission?: Yes (3) HTN (hypertension): See above Present on Admission?: Yes (4) Hyperlipidemia: Continue pravastatin 40 mg daily. Check a fasting lipid panel Present on Admission?: Yes (5) Hyperglycemia: Glucose 129 in the ED. Check hemoglobin A1c Present on Admission?: Yes History of Present Illness Chief Complaint: Patient presents to the emergency department with complaint of palpitations that began earlier in the evening, similar to his 2 previous episodes of paroxysmal atrial fibrillation. Primary Care Provider: Charlie Silverman MD The patient is a 54-year-old male with a past medical history including paroxysmal atrial fibrillation, with first episode December 2016, initially treated with diltiazem, and then placed on low-dose metoprolol, which was then discontinued. He had a second episode while on flight to [facility], when he stood up and walked to the bathroom in the hallway of the cabin, and collapsed. He reports other episodes where he has lost consciousness or nearly lost consciousness. The event today, followed a day of eating excessively, excess salt intake, and decreased intake of fluids. He has been cardioverted by Dr. Hilliard in the past, after having received a dose of flecainide. He reports following with Dr. Bhatti at [facility]. Allergies Allergy/AdvReac Type Severity Reaction Status Date / Time No Known Allergies Allergy Verified 08/01/19 00:10 Home Medications Home Medications Medication Instructions Recorded Confirmed Type pravastatin 40 mg PO DAILY 07/31/19 08/01/19 History ascorbic acid (vitamin C) [Vitamin 500 mg PO BID 08/01/19 08/01/19 History C] aspirin 81 mg PO Q OTHER DAY 08/01/19 08/01/19 History triamcinolone acetonide [Nasacort] 2 spray INTRANASAL DAILY 08/01/19 08/01/19 History Past Med/Surg History Medical History History of cardioversion Hyperlipidemia (Chronic) Panic disorder (Chronic) Syncope Surgical History No pertinent past surgical history Family History Other Cancer Heart disease Social History Preferred Language: [place] Communication Ability: Effective Floral Specialist Required: No Beliefs That Will Affect Care: None Current Living Situation: Spouse and Family Other Information That Helps Us Care for You: No Feels Safe at Home: Yes Safety Concerns: Feels Safe At This Time Smoking Status: Never smoker Hx Alcohol Use: Yes Alcohol type: beer Hx Substance Use: No Review of Systems Review of Systems: The patient denies chest pain, palpitations, shortness of breath, dyspnea on exertion, cough, lower extremity swelling, sore throat, fevers, chills, sweats, nausea, vomiting, diarrhea , constipation, abdominal pain, pelvic pain, blood in urine or stool, dysuria, urinary frequency or urgency, headache, rash, abnormal bruising or bleeding, imbalance, focal or generalized weakness, numbness or tingling in arms or legs, generalized arthralgias or myalgias, back or neck pain, or night sweats. The review of systems is otherwise negative other than for that already noted above, and at least 10 systems have been reviewed. Physical Exam Physical Exam: The patient is awake, alert and oriented 3, well developed and well nourished, normocephalic and atraumatic, lying in bed and in no acute distress. HEENT--PERRL, EOMI, mucous membranes and oropharynx dry. Neck--supple. No JVD. No bruits. Thyroid normal, trachea midline, no adenopathy. Heart--irregularly irregular, with tachycardic variable rate. No murmurs, rubs or gallops. Lungs--clear bilaterally, no respiratory distress, no accessory muscle use. Abdomen--normal bowel sounds and soft. Nontender. Nondistended. Extremities--no cyanosis or clubbing. No edema. Dermatologic--normal skin turgor, normal color, no abnormal lymph nodes, no rash. Neurologic--cranial nerves II through XII grossly intact. Rheumatologic--normal range of motion. Psychiatric--normal affect. Results & Data Vital Signs (Past 12 Hours) Vital Signs Pulse Resp BP Pulse Ox 08/01/19 00:02 99 07/31/19 23:23 154 H 18 171/103 H 99 Laboratory Results Laboratory Results WBC 10.49 K/uL (4.8-10.8) 07/31/19 Unknown RBC 5.08 M/uL (4.7-6.1) 07/31/19 Unknown Hgb 15.7 g/dL (14.0-18.0) 07/31/19 Unknown Hct 44.0 % (42-52) 07/31/19 Unknown MCV 86.6 fL (80-100) 07/31/19 Unknown MCH 30.9 pg (25-34) 07/31/19 Unknown MCHC 35.7 g/dL (32-36) 07/31/19 Unknown RDW Std Deviation 40.8 fL (36.4-46.3) 07/31/19 Unknown RDW Coeff of [place] 12.8 % (11.5-14.5) 07/31/19 Unknown Plt Count 192 K/uL (130-400) 07/31/19 Unknown MPV 11.3 fL (7.4-10.4) H 07/31/19 Unknown Immature Gran % (Auto) 0.2 % 07/31/19 Unknown Neut % (Auto) 79.7 % 07/31/19 Unknown Lymph % (Auto) 14.5 % 07/31/19 Unknown [place] % (Auto) 4.9 % 07/31/19 Unknown Eos % (Auto) 0.6 % 07/31/19 Unknown Baso % (Auto) 0.1 % 07/31/19 Unknown Immature Gran # (Auto) 0.02 K/uL (0.00-0.02) 07/31/19 Unknown Neut # (Auto) 8.37 K/uL (1.4-6.5) H 07/31/19 Unknown Lymph # (Auto) 1.52 K/uL (1.2-3.4) 07/31/19 Unknown [place] # (Auto) 0.51 K/uL (0.11-0.59) 07/31/19 Unknown Eos # (Auto) 0.06 K/uL (0-0.5) 07/31/19 Unknown Baso # (Auto) 0.01 K/uL (0-0.2) 07/31/19 Unknown PT 12.4 Seconds (9.0-12.0) H 07/31/19 Unknown INR 1.2 (0.9-1.1) H 07/31/19 Unknown APTT 28.8 Seconds (21.0-31.0) 07/31/19 Unknown PTT Ratio 1.1 07/31/19 Unknown Sodium 140 mmol/L (136-145) 08/01/19 02:03 Potassium 4.0 mmol/L (3.5-5.1) 08/01/19 02:03 Chloride 108 mmol/L (98-107) H 08/01/19 02:03 Carbon Dioxide 26 mmol/L (21-32) 08/01/19 02:03 Anion Gap 6.0 (3-11) 08/01/19 02:03 BUN 20 mg/dl (7-18) H 08/01/19 02:03 Creatinine 0.87 mg/dl (0.6-1.4) 08/01/19 02:03 Est Cr Clr Drug Dosing 155.7 ml/min 08/01/19 02:03 Est GFR ( Amer) 111.8 08/01/19 02:03 Est GFR (Non-Af Amer) 96.5 08/01/19 02:03 BUN/Creatinine Ratio 23.3 (10-20) H 08/01/19 02:03 Glucose 125 mg/dl (70-99) H 08/01/19 02:03 Calcium 9.3 mg/dl (8.5-10.1) 08/01/19 02:03 Magnesium 2.0 mg/dl (1.8-2.4) 08/01/19 02:03 Total Bilirubin 0.3 mg/dl (0.2-1) 07/31/19 Unknown AST 17 U/L (15-37) 07/31/19 Unknown ALT 25 U/L (12-78) 07/31/19 Unknown Alkaline Phosphatase 64 U/L (45-117) 07/31/19 Unknown Troponin I < 0.015 ng/ml (0-0.045) 08/01/19 02:03 Total Protein 7.7 gm/dl (6.4-8.2) 07/31/19 Unknown Albumin 4.0 gm/dl (3.4-5.0) 07/31/19 Unknown Globulin 3.7 gm/dl (2.5-4.0) 07/31/19 Unknown Albumin/Globulin Ratio 1.1 (0.9-2) 07/31/19 Unknown TSH 2.150 uIu/ml (0.300-4.500) 07/31/19 Unknown Code Status & VTE Plan Code Status Full code VTE Prophylaxis Plan VTE Prophylaxis will be ordered: Yes PG Care Time/CCT Total # of Minutes Spent Total Time Spent with Patient: Total time spent is greater than 50% in coordination of care (as documented) at patient's floor/unit and/or counseling patient: (1) HTN (hypertension) Hypertension type: unspecified Qualified Code(s): I10 - Essential (primary) hypertension
[2019-08-01] MEDS ORDERED: NSS + 20MEQ KCL 20 MEQ/1,000 ML BAG IV SCH (01:45)
[2019-08-01] MEDS ORDERED: MAGNESIUM HYDROXIDE SUSP 30 ML UDC PO PRN (01:46)
[2019-08-01] MEDS ORDERED: ACETAMINOPHEN 325 MG TAB PO PRN (01:46)
[2019-08-01] MEDS ORDERED: ALUMINUM/MAGNESIUM SUSP 30 ML UDC PO PRN (01:46)
[2019-08-01] MEDS ORDERED: ONDANSETRON INJ 2 MG/ML 2 ML VIAL IV PRN (01:46)
[2019-08-01] MEDS ORDERED: ASPIRIN 81 MG ECTAB PO SCH (01:46)
--- NOTE | 2019-08-01 02:18 | Emergency Department Note ---
Entered by Berny Lima acting as a scribe for ED Provider Note CHIEF COMPLAINT: Palpitations HISTORY OF PRESENT ILLNESS: The patient is a 54 year old male who presents to the Emergency Room with complaints of constant palpitations beginning this evening. The patient states he has a history of a-fib, and his first onset was December of 2016. He reports he was given Diltiazem and a calcium channel robert. The patient notes he was then placed on a low dose of metoprolol. He states 8 months later, he lost consciousness on an airplane after getting up to use the restroom. The patient reports he was on his way to [facility], and when he regained consciousness, his heart was irregular. He notes he was told to stop taking the Metoprolol because intermittent LOC is worse than a-fib. The patient states he was told to be placed on Flecainide in [facility], but when he returned, he was not able to get it prescribed. He notes he was cardioverted while being there overnight. He reports he has had other incidences when he has randomly lost consciousness. The patient notes each time is different, and he has had it happen multiple times from sitting up too fast. He states his symptoms started this evening, and he came into the ED to make sure he was one of the first patients in line to be cardioverted. He notes he became very anxious this evening and thinks that is what triggered his current episode. The patient reports he has a history of needing cardioversion other than the episode in [facility]. He notes Dr. Hilliard has cardioverted him before, and his Utility Helicopter Repairer is Dr. Bhatti, [facility]. The patient states his PCP is Dr. Silverman. He denies immediate LOC while receiving a beta-robert and taking a blood thinner. Pt denies LOC, headache, fevers, chills, diaphoresis, visual changes, neck pain, chest pain, breathing difficulties, nausea, vomiting, abdominal pain, back pain, melena, hematochezia, urinary symptoms, numbness, weakness, lymphadenopathy, rash, or other complaints. REVIEW OF SYSTEMS: See HPI for pertinent positives and negatives. A total of ten systems were reviewed and were otherwise negative. PMHx/PSHx: HLD, a-fib, anxiety SOCIAL HISTORY: Patient lives at home. PHYSICAL EXAM: GENERAL: Awake, alert, anxious-appearing, in no distress HENT: Normocephalic, atraumatic. Oropharynx unremarkable. EYES: PERRL. Normal conjunctiva. Sclera non-icteric. NECK: Inspection normal. Non-tender. Supple. No nuchal rigidity. FROM. No masses. RESPIRATORY: Clear to auscultation. No wheezes. No rales. Normal respiratory effort. CARDIAC: Tachycardic rate. Irregular rhythm. No murmurs. No rubs. Extremities warm and well perfused. Pulses equal. No JVD. GI: Soft, non-distended. No tenderness to palpation. No rebound or guarding. No masses. RECTAL: Deferred. MUSCULOSKELETAL: Atraumatic. Chest examination reveals no tenderness. The back is symmetrical on inspection without obvious abnormality. There is no CVA tenderness to palpation. No joint edema. LOWER EXTREMITIES: Calves are equal size bilaterally and non-tender. No edema. No discoloration. NEURO: Normal sensorium. No sensory or motor deficits noted. SKIN: No rash or jaundice noted. EMERGENCY DEPARTMENT COURSE: 2328: The patient was evaluated in room A02, and a complete history and physical examination were performed. 0004: Review of EMR: Dr. Hilliard's note was reviewed from 2017, and the syncopal episodes were felt to be neurocardiogenic. 0028: The patient is more calm after having received his Ativan. MEDICAL DECISION MAKING: Prior records/ancillary studies reviewed. Triage Nursing notes reviewed and agree them. The patient's history was concerning for palpitations. Differential diagnosis: Etiologies such as electrolyte abnormality, cardiac dysrhythmia, thyroid dysfunction, pulmonary embolism, infection, gastrointestinal, as well as others were entertained. Physical examination: Tachycardia noted. ER treatment provided: Patient was anxious and requested a dose of Ativan. He takes this at home occasionally. 0.25 mg was given twice. On reassessment the patient felt better. IV heparin IV diltiazem bolus and drip Oral potassium Diagnostic interpretation by me: The electrocardiogram was significant for rapid atrial fibrillation. The labs revealed an unremarkable CBC and chemistry panel. Potassium was slightly below the target of 4.0 at 3.7. CONTINUOUS CARDIAC MONITORING: Indication: Palpitations Rhythm: Atrial fibrillation with rapid ventricular response Rate: 141 bpm Other: Occasional PVC Imaging studies: Chest x-ray negative for acute process. The patient has recurrent atrial fibrillation with rapid ventricular response. He was anticoagulated. He was concerned about beta-blockers or calcium channel blockers as he had a syncopal episode. By his history this sounds vasovagal or neurocardiogenic in nature. After reviewing the cardiology record it did not appear to be medication related, more neurocardiogenic. He did well with the IV diltiazem. Consultation: A consultation was placed with the hospitalist. The case was discussed and diagnostics were reviewed. The patient was evaluated in the ER for further treatment. IMPRESSION: A-fib with RVR HTN PLAN: Admitted CRITICAL CARE TIME: I have personally spent 30 minutes of critical care time in the direct management of this patient. This includes bedside care, interpretation of diagnostic studies, and testing, discussion with consultants, patient, and other required patient management activities. This 30 minutes is in excess of all separately billable procedures. The scribe's documentation has been prepared under my direction and personally reviewed by me in its entirety. I confirm that the note above accurately reflects all work, treatment, procedures, and medical decision making performed by me. 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 Beliefs That Will Affect Care: None Current Living Situation: Spouse and Family Other Information That Helps Us Care for You: No Feels Safe at Home: Yes Safety Concerns: Feels Safe At This Time Smoking Status: Never smoker Hx Alcohol Use: Yes Alcohol type: beer Hx Substance Use: No Results & Data Vital Signs Vital Signs - 24 hr 07/31/19 23:23 07/31/19 23:24 07/31/19 23:26 Pulse Rate 154 H 150 H 148 H Pulse Rate from SpO2 Sensor 116 H 116 H Respiratory Rate 18 24 22 Respiratory Effort / Characteristics Non-Labored Spontaneous Respiratory Depth Normal Respiratory Pattern Regular Blood Pressure 171/103 H 171/103 H Blood Pressure Mean 125 114 Blood Pressure Position Lying Pulse Oximetry 99 98 97 Oxygen Delivery Method Room Air Sepsis Recent Fever Within 48 Hours No Sepsis Action Taken by Nursing No Action Required 07/31/19 23:30 07/31/19 23:40 07/31/19 23:50 Pulse Rate 141 H 127 H 125 H Pulse Rate from SpO2 Sensor 116 H 105 H 113 H Respiratory Rate 19 16 12 Respiratory Effort / Characteristics Respiratory Depth Respiratory Pattern Blood Pressure 162/104 H Blood Pressure Mean 130 Blood Pressure Position Pulse Oximetry 97 93 95 Oxygen Delivery Method Sepsis Recent Fever Within 48 Hours Sepsis Action Taken by Nursing 08/01/19 00:00 08/01/19 00:01 08/01/19 00:02 Pulse Rate 140 H 148 H Pulse Rate from SpO2 Sensor 75 129 H Respiratory Rate 12 12 Respiratory Effort / Characteristics Non-Labored Spontaneous Respiratory Depth Normal Respiratory Pattern Blood Pressure 124/84 Blood Pressure Mean 107 Blood Pressure Position Pulse Oximetry 96 96 99 Oxygen Delivery Method Room Air Sepsis Recent Fever Within 48 Hours Sepsis Action Taken by Nursing 08/01/19 00:10 08/01/19 00:20 08/01/19 00:30 Pulse Rate 113 H 121 H 112 H Pulse Rate from SpO2 Sensor 90 93 H 95 H Respiratory Rate 10 L 12 13 Respiratory Effort / Characteristics Respiratory Depth Respiratory Pattern Blood Pressure 117/85 Blood Pressure Mean 111 Blood Pressure Position Pulse Oximetry 94 95 94 Oxygen Delivery Method Sepsis Recent Fever Within 48 Hours Sepsis Action Taken by Nursing 08/01/19 00:40 08/01/19 00:50 Pulse Rate 133 H 107 H Pulse Rate from SpO2 Sensor 93 H 106 H Respiratory Rate 12 12 Respiratory Effort / Characteristics Respiratory Depth Respiratory Pattern Blood Pressure Blood Pressure Mean Blood Pressure Position Pulse Oximetry 94 94 Oxygen Delivery Method Sepsis Recent Fever Within 48 Hours Sepsis Action Taken by Snf Medications Current Medication List: was personally reviewed by me Laboratory Data Attestation: I reviewed the patient's lab results. Result diagrams: 07/31/19 Unknown 07/31/19 Unknown Lab Results 07/31/19 07/31/19 07/31/19 Range/Units Unknown Unknown Unknown WBC 10.49 (4.8-10.8) K/uL RBC 5.08 (4.7-6.1) M/uL Hgb 15.7 (14.0-18.0) g/dL Hct 44.0 (42-52) % MCV 86.6 (80-100) fL MCH 30.9 (25-34) pg MCHC 35.7 (32-36) g/dL RDW Std Deviation 40.8 (36.4-46.3) fL RDW Coeff of Logan 12.8 (11.5-14.5) % Plt Count 192 (130-400) K/uL MPV 11.3 H (7.4-10.4) fL Immature Gran % (Auto) 0.2 % Neut % (Auto) 79.7 % Lymph % (Auto) 14.5 % Piute % (Auto) 4.9 % Eos % (Auto) 0.6 % Baso % (Auto) 0.1 % Immature Gran # (Auto) 0.02 (0.00-0.02) K/uL Neut # (Auto) 8.37 H (1.4-6.5) K/uL Lymph # (Auto) 1.52 (1.2-3.4) K/uL Pi[place] # (Auto) 0.51 (0.11-0.59) K/uL Eos # (Auto) 0.06 (0-0.5) K/uL Baso # (Auto) 0.01 (0-0.2) K/uL PT 12.4 H (9.0-12.0) Seconds INR 1.2 H (0.9-1.1) APTT 28.8 (21.0-31.0) Seconds PTT Ratio 1.1 Sodium 141 (136-145) mmol/L Potassium 3.7 (3.5-5.1) mmol/L Chloride 107 (98-107) mmol/L Carbon Dioxide 29 (21-32) mmol/L Anion Gap 5.0 (3-11) BUN 22 H (7-18) mg/dl Creatinine 1.04 (0.6-1.4) mg/dl Est Cr Clr Drug Dosing 132.1 ml/min Est GFR ( Amer) 92.6 Est GFR (Non-Af Amer) 79.9 BUN/Creatinine Ratio 21.4 H (10-20) Glucose 129 H (70-99) mg/dl Calcium 9.4 (8.5-10.1) mg/dl Magnesium 1.9 (1.8-2.4) mg/dl Total Bilirubin 0.3 (0.2-1) mg/dl AST 17 (15-37) U/L ALT 25 (12-78) U/L Alkaline Phosphatase 64 (45-117) U/L Total Protein 7.7 (6.4-8.2) gm/dl Albumin 4.0 (3.4-5.0) gm/dl Globulin 3.7 (2.5-4.0) gm/dl Albumin/Globulin Ratio 1.1 (0.9-2) TSH 2.150 (0.300-4.500) uIu/ml Administered Medications Diltiazem HCl 125 mg/ Dextrose 125 mls @ 0 mls/hr IV .Q0M MELL; Protocol Stop: 08/31/19 00:14 Last Admin: 08/01/19 00:27 Dose: 5 mg/hr, 5 mls/hr Documented by: [id number] Cosigned by: [id number] Heparin Sodium/Dextrose (Heparin Sodium/Dextrose) 25,000 units in 500 mls @ 42 mls/hr IV .[id number] MELL; Protocol Stop: 08/31/19 00:14 Last Admin: 08/01/19 00:16 Dose: 2,100 units/hr, 42 mls/hr Documented by: [id number] Cosigned by: [id number] Potassium Chloride/Sodium Chloride (Normal Saline W/20 Meq Kcl) 20 meq in 1,000 mls @ 100 mls/hr IV .Q10H MELL Stop: 08/31/19 01:44 Last Admin: 08/01/19 01:49 Dose: 100 mls/hr Documented by: [id number] Discontinued Medications Diltiazem HCl (Cardizem) 10 mg IV NOW STA Stop: 08/01/19 00:05 Last Admin: 08/01/19 00:18 Dose: 10 mg Documented by: [id number] Cosigned by: [id number] Heparin Sodium (Porcine) (Heparin Iv Bolus) Confirm Administered Dose 10,000 units .ROUTE .STK-MED ONE Stop: 08/01/19 00:13 Last Admin: 08/01/19 00:17 Dose: 9,000 units Documented by: [id number] Cosigned by: [id number] Heparin Sodium/Dextrose () 1 ea N/A NOW STA; Protocol Stop: 08/01/19 00:06 Last Admin: 08/01/19 01:55 Dose: 1 ea Documented by: [id number] Lorazepam (Ativan) 0.5 mg PO NOW STA Stop: 07/31/19 23:41 Last Admin: 08/01/19 00:25 Dose: 0.5 mg Documented by: [id number] Potassium Chloride (Klor-Con M20) 20 meq PO NOW STA Stop: 08/01/19 00:25 Last Admin: 08/01/19 00:28 Dose: 20 meq Documented by: [id number] Imaging Data Attestation: I personally reviewed and interpreted this imaging study as follows: My Impression: XR chest 1V portable: No pneumonia. No pneumothorax. Normal cardiac silhouette. No wide mediastinum. ECG Data Attestation: I personally reviewed and interpreted this ECG as follows: Indication: + palpitations Rate (beats per minute): 151 Rhythm: atrial fibrillation (with RVR) ECG Intervals/blocks: + Normal QRS ECG [place]: + Normal ECG ST segments: + T-wave inversions (Inferior); no ST elevation ECG Findings: no PACs Blood Pressure Blood Pressure Findings: Elevated blood pressure Blood Pressure Disposition: further management by hospitalist Discharge Plan Visit Data *Final* Discharge Date/Time: 08/01/19 01:34 Chief Complaint: Cardiac Assessment Stated Complaint: A-FIB ED Provider: Alverto Chacon Discharge Problem: Atrial fibrillation with RVR, HTN (hypertension) Patient Disposition: Admitted As Inpatient Discharge Instructions Interventions: ED Discharge Assessment Last Done: 08/01/19 01:34 Discharge Problem: HTN (hypertension) Qualifiers: Hypertension type: unspecified Qualified Code(s): I10 - Essential (primary) hypertension The scribe's documentation has been prepared under my direction and personally reviewed by me in its entirety. I confirm that the note above accurately reflec ts all work, treatment, procedures, and medical decision making performed by me.
[2019-08-01 02:40] LABS: BUN Creatinine Ratio 23.3 (10-20); Blood Urea Nitrogen 20 mg/dl (7-18); Calcium 9.3 mg/dl (8.5-10.1); Carbon Dioxide 26 mmol/L (21-32); Chloride 108 mmol/L (98-107); Creatinine Clr Calc Pharmacy 155.7 ml/min; Est GFR (African American) 111.8; Est GFR (Non-African American) 96.5; Glucose 125 mg/dl (70-99); Sodium 140 mmol/L (136-145)
[2019-08-01 02:45] LABS: Troponin I < 0.015 ng/ml (0-0.045)
[2019-08-01] MEDS: ASCORBIC ACID 500 MG TAB PO SCH ×2 (03:40→09:36)
--- NOTE | 2019-08-01 05:46 | XRay Report ---
XR chest 1V portable CLINICAL HISTORY: rapid afib cardiac arrhythmia COMPARISON STUDY: 01/02/2017 FINDINGS: The bones soft tissues and hemidiaphragms are normal. The cardiomediastinal silhouette is n ormal. The lungs are clear. The pulmonary vasculature is normal. IMPRESSION: Negative chest. The above report was generated using voice recognition software. It may contain grammatical, syntax or spelling errors. Electronically signed by: Mik Carter M.D. 08/01/2019 5:45 AM
[2019-08-01 07:27] LABS: Partial Thromboplastin Ratio 3.5
[2019-08-01 07:41] LABS: Chol HDL Ratio 2; Cholesterol 132 mg/dl (0-200); HDL Cholesterol 58 mg/dl; LDL Cholesterol Calculated 67 mg/dl; Magnesium 1.8 mg/dl (1.8-2.4); Triglycerides 36 mg/dl (0-150); Troponin I < 0.015 ng/ml (0-0.045); VLDL Cholesterol 7 mg/dl
[2019-08-01 07:56] LABS: Estimated Average Glucose 108 mg/dl; Hemoglobin A1C 5.4 % (4.5-5.6)
[2019-08-01] MEDS ORDERED: PRAVASTATIN SOD 40 MG TAB PO SCH ×2 (09:00→17:00)
[2019-08-01] MEDS ORDERED: TRIAMCINOLONE ACET NASAL SPRAY 10.8ML BTL NAE SCH (09:00)
--- NOTE | 2019-08-01 09:29 | Hospitalist Progress Note ---
Date of Service August 01, 2019 Assessment & Plan (1) Atrial fibrillation with RVR: Mr. Lopez is a 54yo with a PMHx of paroxysmal atrial fibrillation, HLD, HTN, panic disorder who presented with a fib with rvr. Was started on a cardizem and heparin drip, and supplemented with potassium to keep K+>4. Overnight he remained in atrial fibrillation with HR in 80s to 90s, with no acute events. Pt states he is tired, has no associated chest pain, and no longer feels like his heart is "fluttering". He does endorse some dizziness or unsteadiness on his feet. Denies any acute episodes of weakness, slurred speech/dysarthria, changes to vision or headache. On exam this AM, his vitals were stable with BP of 123/77 and HR controlled at 75. He was resting comfortably in bed, with an irregularly irregular HR, no murmurs, clear breath sounds with no crackles, rales or rhonchi, some trace edema noted in the lower extremities. His potassium was within goal of 4 and Mag within goal of 2. TSH normal Trops negativex1 and trending 54yo gentleman currently being treated for a fib with rvr. Atrial fibrillation with RVR -Pt presented with a fib with RVR, EKG with VR of of 151, qtc of 472 -Started on diltiazem drip, currently rate controlled. -currently on -Echo pending Results & Data Vital Signs (Past 12 Hours) Vital Signs Temp Pulse Pulse Resp BP BP Pulse Ox 08/01/19 08:48 36.7 C 77 19 121/83 97 08/01/19 04:00 36.8 C 75 16 123/77 95 08/01/19 02:01 36.9 C 118 H 18 129/88 95 08/01/19 01:31 118 H 16 130/84 08/01/19 01:30 134 H 17 08/01/19 01:20 100 H 12 08/01/19 01:10 110 H 12 157/94 H 08/01/19 00:50 107 H 12 94 08/01/19 00:40 133 H 12 94 08/01/19 00:30 112 H 13 117/85 94 08/01/19 00:20 121 H 12 95 08/01/19 00:10 113 H 10 L 94 08/01/19 00:02 99 08/01/19 00:01 148 H 12 124/84 96 08/01/19 00:00 140 H 12 96 07/31/19 23:50 125 H 12 95 07/31/19 23:40 127 H 16 93 07/31/19 23:30 141 H 19 162/104 H 97 07/31/19 23:26 148 H 22 97 07/31/19 23:24 150 H 24 171/103 H 98 07/31/19 23:23 154 H 18 171/103 H 99
--- NOTE | 2019-08-01 10:19 | Cardiology Consultation ---
Date of Consultation August 01, 2019 Assessment & Plan (1) Paroxysmal atrial fibrillation: He has recurrent atrial fibrillation. In the past he has not converted spontaneously but has required electrical cardioversion. He is minimally symptomatic but certainly has higher heart rates. The actual duration of his atrial fibrillation is also unknown. He was not confident that it started last evening. He does not measure his pulse regularly. He had some very mild symptoms earlier in the week and could not be very convincing regarding the onset of the arrhythmia. I think we should proceed with cardioversion. However, given the unknown duration of the arrhythmia I think we should proceed with TAWANNA 1st. In the absence of left atrial appendage thrombus we will perform cardioversion. He will be maintained on heparin currently. He should start a novel agent afterwards and continue on this agent for 3 weeks. Given his low chads Vasc risk he does not require additional anticoagulation subsequent to 3 weeks. I do not think he requires other medicine for prophylaxis. It has been 18 months since his last episode. I do not think he benefits from a daily antiarrhythmic. He certainly does not benefit from rate control medication that has had a potential adverse reaction to metoprolol in the past. I think he can be safely discharged on Eliquis for 3 weeks. I do not believe he requires any other therapy currently. If he has frequent recurrent episodes then we will need to initiate antiarrhythmic therapy or possibly refer for pulmonary vein isolation. History of Present Illness Reason for Consultation: Atrial fibrillation Requesting Physician: Lee Attending Physician: Adrian Mckeon DO History of Present Illness The patient is a 54-year-old gentleman with a history of persistent atrial fibrillation to experienced the onset of palpitations and brief lightheadedness last evening around 7 p.m.. Patient's history of atrial fibrillation dates back a couple of years. He was admitted to the hospital with atrial fibrillation in 2017. He required cardioversion at that time. Subsequently he did have an episode in [place] requiring cardioversion. In the interim the patient generally feels well. He is an active individual who exercises regularly. He has not report symptoms such as limiting dyspnea or chest pains. Certainly does not have exertional symptoms of that nature. He does have a history of syncope. These episodes appear to be situational in nature and are likely vagally mediated. He has not had a recent episode of syncope. Patient has been quite busy lately. He has also been under more stress lately. His mother has atrial fibrillation he recently traveled to [place] to be with her during an episode of atrial fibrillation. He states that he felt somewhat tired earlier in the week. He has not measured his pulse routinely. He did measure his pulse yesterday using his phone and noted it was elevated. Based on his history of atrial fibrillation, the elevated heart rate and his symptoms he sought medical attention emergency room. Allergies Allergy/AdvReac Type Severity Reaction Status Date / Time No Known Allergies Allergy Verified 08/01/19 00:10 Home Medications Home Medications Medication Instructions Recorded Confirmed Type pravastatin 40 mg PO DAILY 07/31/19 08/01/19 History ascorbic acid (vitamin C) [Vitamin 500 mg PO BID 08/01/19 08/01/19 History C] aspirin 81 mg PO Q OTHER DAY 08/01/19 08/01/19 History triamcinolone acetonide [Nasacort] 2 spray INTRANASAL DAILY 08/01/19 08/01/19 History Patient History Medical History History of cardioversion History of syncope Hyperlipidemia (Chronic) Panic disorder (Chronic) Paroxysmal atrial fibrillation Syncope Surgical History No pertinent past surgical history Family History Other Cancer Heart disease Social History Preferred Language: Burmese Communication Ability: Effective Rehab Trainer Required: No Beliefs That Will Affect Care: None Current Living Situation: Spouse and Family Other Information That Helps Us Care for You: No Feels Safe at Home: Yes Safety Concerns: Feels Safe At This Time Smoking Status: Never smoker Hx Alcohol Use: Yes Alcohol type: beer Hx Substance Use: No Review of Systems Review of Systems: All systems reviewed & are unremarkable except as noted in HPI & below Physical Exam Physical Exam: The patient is alert and oriented. Mood and affect appeared normal. He answered all questions appropriately. HEENT: Pupils are equal and reactive to light and accommodation. Extraocular movements are intact. The sclerae are anicteric. Neuro: Cranial nerves intact Neck: Patient's neck is supple. He has palpable carotid pulses bilaterally without bruits on auscultation. There is no evidence of jugular venous distention. The thyroid is not enlarged. Lungs: Clear to auscultation bilaterally. He has good air movement without use of accessory muscles. No rales wheezes or rhonchi. Cardiac: Heart demonstrates an irregular rate and rhythm. Normal S1 and S2. No murmurs on examination. Pulses: The patient has palpable radial pulses bilaterally that are equal in intensity Extremities: There was no evidence of hypoperfusion. There is no cyanosis or clubbing. There is no edema. Skin: I did not appreciate any rashes on examination today. Results & Data Vital Signs (Past 12 Hours) Vital Signs Temp Pulse Pulse Resp BP BP Pulse Ox 08/01/19 08:48 36.7 C 77 19 121/83 97 08/01/19 04:00 36.8 C 75 16 123/77 95 08/01/19 02:01 36.9 C 118 H 18 129/88 95 08/01/19 01:31 118 H 16 130/84 08/01/19 01:30 134 H 17 08/01/19 01:20 100 H 12 08/01/19 01:10 110 H 12 157/94 H 08/01/19 00:50 107 H 12 94 08/01/19 00:40 133 H 12 94 08/01/19 00:30 112 H 13 117/85 94 08/01/19 00:20 121 H 12 95 08/01/19 00:10 113 H 10 L 94 08/01/19 00:02 99 08/01/19 00:01 148 H 12 124/84 96 08/01/19 00:00 140 H 12 96 07/31/19 23:50 125 H 12 95 07/31/19 23:40 127 H 16 93 07/31/19 23:30 141 H 19 162/104 H 97 07/31/19 23:26 148 H 22 97 07/31/19 23:24 150 H 24 171/103 H 98 07/31/19 23:23 154 H 18 171/103 H 99 Laboratory Results Abnormal Lab Results 07/31/19 07/31/19 07/31/19 Unknown Unknown Unknown WBC 10.49 RBC 5.08 Hgb 15.7 Hct 44.0 MCV 86.6 MCH 30.9 MCHC 35.7 RDW Std Deviation 40.8 RDW Coeff of [place] 12.8 Plt Count 192 MPV 11.3 H Immature Gran % (Auto) 0.2 Neut % (Auto) 79.7 Lymph % (Auto) 14.5 [place] % (Auto) 4.9 Eos % (Auto) 0.6 Baso % (Auto) 0.1 Immature Gran # (Auto) 0.02 Neut # (Auto) 8.37 H Lymph # (Auto) 1.52 [place] # (Auto) 0.51 Eos # (Auto) 0.06 Baso # (Auto) 0.01 PT 12.4 H INR 1.2 H APTT 28.8 PTT Ratio 1.1 Sodium 141 Potassium 3.7 Chloride 107 Carbon Dioxide 29 Anion Gap 5.0 BUN 22 H Creatinine 1.04 Est Cr Clr Drug Dosing 132.1 Est GFR ( Amer) 92.6 Est GFR (Non-Af Amer) 79.9 BUN/Creatinine Ratio 21.4 H Glucose 129 H Estimat Average Glucose Hemoglobin A1c Calcium 9.4 Magnesium 1.9 Total Bilirubin 0.3 AST 17 ALT 25 Alkaline Phosphatase 64 Troponin I Total Protein 7.7 Albumin 4.0 Globulin 3.7 Albumin/Globulin Ratio 1.1 Triglycerides Cholesterol LDL Cholesterol, Calc VLDL Cholesterol, Calc HDL Cholesterol Cholesterol/HDL Ratio TSH 2.150 08/01/19 08/01/19 08/01/19 02:03 06:48 06:48 WBC RBC Hgb Hct MCV MCH MCHC RDW Std Deviation RDW Coeff of [place] Plt Count MPV Immature Gran % (Auto) Neut % (Auto) Lymph % (Auto) [place] % (Auto) Eos % (Auto) Baso % (Auto) Immature Gran # (Auto) Neut # (Auto) Lymph # (Auto) [place] # (Auto) Eos # (Auto) Baso # (Auto) PT INR APTT 94.0 H* PTT Ratio 3.5 Sodium 140 Potassium 4.0 Chloride 108 H Carbon Dioxide 26 Anion Gap 6.0 BUN 20 H Creatinine 0.87 Est Cr Clr Drug Dosing 155.7 Est GFR ( Amer) 111.8 Est GFR (Non-Af Amer) 96.5 BUN/Creatinine Ratio 23.3 H Glucose 125 H Estimat Average Glucose Hemoglobin A1c Calcium 9.3 Magnesium 2.0 1.8 Total Bilirubin AST ALT Alkaline Phosphatase Troponin I < 0.015 < 0.015 Total Protein Albumin Globulin Albumin/Globulin Ratio Triglycerides 36 Cholesterol 132 LDL Cholesterol, Calc 67 VLDL Cholesterol, Calc 7 HDL Cholesterol 58 Cholesterol/HDL Ratio 2 TSH 08/01/19 06:48 WBC RBC Hgb Hct MCV MCH MCHC RDW Std Deviation RDW Coeff of Logan Plt Count MPV Immature Gran % (Auto) Neut % (Auto) Lymph % (Auto) [place] % (Auto) Eos % (Auto) Baso % (Auto) Immature Gran # (Auto) Neut # (Auto) Lymph # (Auto) [place] # (Auto) Eos # (Auto) Baso # (Auto) PT INR APTT PTT Ratio Sodium Potassium Chloride Carbon Dioxide Anion Gap BUN Creatinine Est Cr Clr Drug Dosing Est GFR ( Amer) Est GFR (Non-Af Amer) BUN/Creatinine Ratio Glucose Estimat Average Glucose 108 Hemoglobin A1c 5.4 Calcium Magnesium Total Bilirubin AST ALT Alkaline Phosphatase Troponin I Total Protein Albumin Globulin Albumin/Globulin Ratio Triglycerides Cholesterol LDL Cholesterol, Calc VLDL Cholesterol, Calc HDL Cholesterol Cholesterol/HDL Ratio TSH Diagnostic Findings Chest x-ray obtained at the time of admission did reveal any acute cardiopulmonary process. ECG Additional Comments: EKG obtained the time admission revealed atrial fibrillation and rapid ventricular rate. PG Care Time/CCT Total # of Minutes Spent Total Time Spent with Patient: Total time spent is greater than 50% in coordination of care (as documented) at patient's floor/unit and/or counseling patient:
--- NOTE | 2019-08-01 10:39 | Anesthesiology Consultation ---
Date of Service August 01, 2019 Assessment & Plan (1) Encounter for pre-operative examination: Chart Review Chart Review: Acceptable Risk for Surgery and Patient NOT seen in Pre Admission Testing Consults Requested none ASA ASA2 Proposed Anesthesia Anesthesia Type: MAC Risk / Benefits Reviewed With: PT / POA / Parent / Guardian, Accepts Plan and In formed Consent Obtained History Surgery Operation Date: 08/01/19 10:00 Proposed Procedures p Transesophageal Echo w/Anesthesia - Pedro Hilliard MD Height/Weight Height: 6 ft 8 in Weight: 146.2 kg Allergies Allergy/AdvReac Type Severity Reaction Status Date / Time No Known Allergies Allergy Verified 08/01/19 00:10 Medications Home Medications Medication Instructions Recorded Confirmed Last Taken pravastatin 40 mg PO DAILY 07/31/19 08/01/19 07/31/19 ascorbic acid (vitamin C) [Vitamin 500 mg PO BID 08/01/19 08/01/19 07/31/19 C] aspirin 81 mg PO Q OTHER DAY 08/01/19 08/01/19 07/30/19 triamcinolone acetonide [Nasacort] 2 spray INTRANASAL DAILY 08/01/19 08/01/19 07/31/19 Active Medications Generic Name Dose Route Start Last Admin Trade Name Freq PRN Reason Stop Dose Admin Ascorbic Acid 500 mg 08/01/19 01:46 08/01/19 09:36 Vitamin C PO 08/31/19 01:45 500 mg BID MELL Administration Aspirin 81 mg 08/01/19 01:46 08/01/19 03:40 Ecotrin Ectab PO 08/31/19 01:45 81 mg Q2D@0900 MELL Administration Diltiazem HCl 125 mg/ Dextrose 125 mls @ 10 mls/hr 08/01/19 00:15 08/01/19 07:17 IV 08/31/19 00:14 10 mg/hr .[id number] MELL 10 mls/hr Titration Protocol 10 MG/HR Heparin Sodium/Dextrose 25,000 units in 500 mls @ 37 mls/hr 08/01/19 00:15 08/01/19 08:00 Heparin Sodium/Dextrose IV 08/31/19 00:14 1,850 units/hr .[id number] MELL 37 mls/hr Titration Protocol 1,850 UNITS/HR Potassium Chloride/Sodium Chloride 20 meq in 1,000 mls @ 100 mls/hr 08/01/19 01:45 08/01/19 01:49 Normal Saline W/20 Meq Kcl IV 08/01/19 11:44 100 mls/hr .Q10H MELL Administration Triamcinolone Acetonide 2 sprays 08/01/19 09:00 08/01/19 09:36 Nasacort EDI 08/31/19 08:59 2 sprays DAILY MELL Administration Past Medical History Medical History History of cardioversion History of syncope Hyperlipidemia (Chronic) Panic disorder (Chronic) Paroxysmal atrial fibrillation Syncope Exercise / Class Metabolic Activity II 4-5 Yardwork/Stairs/Walk up hill Past Family History Family History Other Cancer Heart disease Past Surgical History Surgical History No pertinent past surgical history Past Anesthesia History No Hx of Anesthesia Complications and No Family Hx of Anesthesia Complications History of PONV No Hx of PONV and No Hx of Motion Sickness Social History Smoking Status: Never smoker Hx Alcohol Use: Yes Alcohol type: beer alcohol intake frequency: holidays/special occasions only Hx Substance Use: No Physical Exam Vital Signs Last Vital Signs Temp 36.7 C 08/01/19 08:48 Pulse 77 08/01/19 08:48 Resp 19 08/01/19 08:48 BP 121/83 08/01/19 08:48 Pulse Ox 97 08/01/19 08:48 ENMT Mouth: no dentition abnormality Thyromental Distance: > or= 3.5 Finger Breadths Mallampati Class: II Neck normal visual inspection Respiratory normal respiratory effort Auscultation: lungs clear to auscultation bilaterally Cardiovascular Rate/Rhythm: + abnormal rate (tachy) and + abnormal rhythm Psychiatric Orientation: alert Testing Laboratory Results 07/31/19 Unknown 08/01/19 02:03 PT 12.4 Seconds (9.0-12.0) H 07/31/19 Unknown INR 1.2 (0.9-1.1) H 07/31/19 Unknown APTT 94.0 Seconds (21.0-31.0) H* 08/01/19 06:48 Hemoglobin A1c 5.4 % (4.5-5.6) 08/01/19 06:48
[2019-08-01] MEDS ORDERED: PROPOFOL IV EMULSION 10 MG/ML 20 ML VIAL IV ONE ×2 (10:47→10:59)
[2019-08-01] MEDS ORDERED: LIDOCAINE HCL 2% 2 ML VIAL/AMP(20MG/ML) INFIL ONE (10:59)
--- NOTE | 2019-08-01 11:01 | Anesthesiology Progress Note ---
Date of Service August 01, 2019 Anesthesia Post Procedure Vital Signs Vital Signs: Temp Pulse Pulse Resp BP BP Pulse Ox 08/01/19 08:48 36.7 C 77 19 121/83 97 08/01/19 04:00 36.8 C 75 16 123/77 95 08/01/19 02:01 36.9 C 118 H 18 129/88 95 08/01/19 01:31 118 H 16 130/84 08/01/19 01:30 134 H 17 08/01/19 01:20 100 H 12 08/01/19 01:10 110 H 12 157/94 H 08/01/19 00:50 107 H 12 94 08/01/19 00:40 133 H 12 94 08/01/19 00:30 112 H 13 117/85 94 08/01/19 00:20 121 H 12 95 08/01/19 00:10 113 H 10 L 94 08/01/19 00:02 99 08/01/19 00:01 148 H 12 124/84 96 08/01/19 00:00 140 H 12 96 07/31/19 23:50 125 H 12 95 07/31/19 23:40 127 H 16 93 07/31/19 23:30 141 H 19 162/104 H 97 07/31/19 23:26 148 H 22 97 07/31/19 23:24 150 H 24 171/103 H 98 07/31/19 23:23 154 H 18 171/103 H 99 Transfer of Care Handoff Completed per policy Notes Mental Status: alert / awake / arousable Patient Amnestic to Procedure: Yes Nausea / Vomiting: adequately controlled Pain: adequately controlled Airway Patency, RR, SpO2: stable & adequate BP & HR: stable & adequate Hydration State: stable & adequate Anesthetic Complications: no major complications apparent
--- NOTE | 2019-08-01 12:39 | Cardioversion ---
Date of Service August 01, 2019 Electrical Cardioversion Rpt Electrical Cardioversion Report Procedure performed: Cardioversion Indication: Atrial fibrillation Staff recruiting manager: Venkatesh Hilliard MD Procedure in detail: The patient was informed of the risks benefits and alternatives to the intended procedure. He understood such which proceed. He was taken to the cardiac catheterization suite holding area. A general anesthetic was administered by the Anesthesiology Service. Once appropriately anesthetized, the patient was cardioverted using 100 joules delivered in a biphasic fashion. This returned the patient to sinus rhythm. The patient tolerated procedure well, there were no immediate complications. Patient was neurologically intact subsequent to the procedure. Impression: Successful cardioversion from atrial fibrillation to normal sinus rhythm [facility] Cardiac Procedure Charge Cardiovascular Procedure 1: Cardiovascular: [id number] Cardioversion electric, ext
[2019-08-01] MEDS ORDERED: APIXABAN 5 MG TABLET PO STA (13:56)
--- NOTE | 2019-08-01 17:49 | Discharge Summary ---
Date of Service August 01, 2019 Admission HPI Per Admitting Provider The patient is a 54-year-old male with a past medical history including paroxysmal atrial fibrillation, with first episode December 2016, initially treated with diltiazem, and then placed on low-dose metoprolol, which was then discontinued. He had a second episode while on flight to [facility], when he stood up and walked to the bathroom in the hallway of the cabin, and collapsed. He reports other episodes where he has lost consciousness or nearly lost consciousness. The event today, followed a day of eating excessively, excess salt intake, and decreased intake of fluids. He has been cardioverted by Dr. Hilliard in the past, after having received a dose of flecainide. He reports following with Dr. Bhatti at [facility] [place]. Principal Diagnosis afib Discharge Exam gen pleasant nad kellie nc at [facility] breathing unlabored cardio now reg rate Discharge Data Allergies Allergy/AdvReac Type Severity Reaction Status Date / Time No Known Allergies Allergy Verified 08/01/19 00:10 Consultations 08/01/19 00:25 ED Decision to Admit Stat 08/01/19 00:59 ED Decision to Admit Stat 08/01/19 01:46 Consult Cardiology Routine Consult Case Management - Discharge Planning Routine Procedures Performed Operation Date: 08/01/19 10:00 Actual Procedures p Echo Transesophageal - Pedro Hilliard MD s Cardioversion - Pedro Hilliard MD Hospital Course (1) Atrial fibrillation with RVR: now cardioverted anticoagulation for the next few weeks per cardiology discussed following symptoms, rhythm, AND rate to match symptoms to simply the presence of the rhythm or the rhythm w RVR stable for home (2) Paroxysmal atrial fibrillation: See above (3) HTN (hypertension): unclear if he truly has HTN -if he does this would warrant extermination inspector anticoagulation based on CHADS-Vasc, but his hx with ambulatory monitoring seems like this is not clear - rec'd closer and more frequent ambulatory monitoring and then close PCP f/u (4) Hyperlipidemia: Continue pravastatin 40 mg daily. outpt f/u - total 132, HDL 58, LDL 67, TG 36 (5) Hyperglycemia: A1c 5.4 Total Time Total Time Spent Total Time Spent (In Minutes): >30 Discharge Plan Discharge Items Patient Disposition: Home - Self-Care Reason For Visit: ATRIAL FIB WITH RVR Discharge Diagnosis: Atrial fibrillation with rapid ventricular rate Activity: Per Instructions section Non-emergency contact: Primary Care Provider and Spragger Call non-emergency contact if: your symptoms worsen and your pain is worsening Follow-up/Referrals: Charlie Silverman MD [Primary Care Provider] - 08/08/19 10:10 am (Please, follow up at Dr. Charlie Silverman' office with his associate, Dr. Lane, on WednesdayAugust 08 at 10:10 am. *If you need to change this appointment, call their office at [phone].) Diet: Heart Healthy [facility] Attending Provider Instructions: Mr. Lopez, you were admitted because you had atrial fibrillation with a rapid ventricular rate. We treated you with medications that controlled your heart rate and you underwent a cardioversion with your analytical consultant, Dr. Hilliard, so that we could get you back into sinus rhythm. We will be starting you on a blood thinner called Eliquis, to take twice a day for the next 3 weeks. This is to minimize your risk of stroke after your cardioversion. Please take your first dose tonight. Since you are taking Eliquis, which thins your blood, you can stop taking the aspirin, as taking both medications together will put you at a higher risk for bleeding. We recommend that you closely followup with your primary care provider Dr. Silverman within the next week after discharge. Should your symptoms return, or you suddenly develop chest pain, trouble breathing, nausea or vomiting please seek emergent medical care. It was a pleasure taking care during your stay here! Pending Studies at Discharge: No Stand-Alone Forms: My [facility], Smoking Cessation Medications and DC Order Prescriptions: New Eliquis 5 mg tablet 5 mg PO BID 21 Days Qty: 42 RF: 0 Continued pravastatin 40 mg tablet 40 mg PO DAILY RF: 0 ascorbic acid (vitamin C) [Vitamin C] 500 mg Tablet 500 mg PO BID RF: 0 triamcinolone acetonide [Nasacort] 55 mcg Aerosol,[place] 2 spray INTRANASAL DAILY RF: 0 Discontinued aspirin 81 mg Tablet,Delayed Release (Dr/Ec) 81 mg PO Q OTHER DAY RF: 0 Discharge Orders: Discharge Order (Routine); Ordered 08/01/19 Ordered By: Kristy Ernandez/Other Patient Handouts: Fibrillation Atrial Dc, Cardioversion Dc, Apixaban Oral tablet Admission Data Admit Date/Time: 08/01/19 01:00 Attending Provider: Adrian Mckeon Admit Provider: Selvin Duarte Primary Care Provider: Charlie Silverman Other Providers: Selvin Duarte ; Pedro Hilliard Other Interventions: Discharge Summary Assessment (RN) Last Done: 08/01/19 15:08 DC Date/Time DO NOT enter until pt leaves facility: 08/01/19 15:22
== END 2019-08-01 15:22 | disposition home or self-care (01) | DRG 310 ==
LOC: ED 23:17 → SUATTDRO 08-01 01:00 → 2S 08-01 01:00

== ENCOUNTER 2022-09-14 00:52 | Observation (INO) ==
[2022-09-14 01:57] LABS: Basophils # (auto) 0.04 K/uL (0-0.2); Basophils % (auto) 0.5 %; Eosinophils # (auto) 0.12 K/uL (0-0.50); Eosinophils % (auto) 1.5 %; Hematocrit (blood only) 42.8 % (40.1-51.0); Hemoglobin 15.1 g/dl (14.0-18.0); Immature Granulocytes # (auto) 0.03 K/uL (0.00-0.02); Immature Granulocytes % (auto) 0.4 %; Lymphocytes # (auto) 2.73 K/uL (1.2-3.4); Lymphocytes % (auto) 33.1 %; Mean Corpuscular Hemoglobin 30.9 pg (25.0-34.0); Mean Corpuscular Hgb Conc 35.3 g/dL (32.0-36.0); Mean Corpuscular Volume 87.5 fL (80.0-100.0); Mean Platelet Volume 11.1 fL (9.4-12.4); Monocytes # (auto) 0.79 K/uL (0.24-0.82); Monocytes % (auto) 9.6 %; Neutrophils # (auto) 4.53 K/uL (1.4-6.5); Neutrophils % (auto) 54.9 %; Platelet Count 204 K/uL (130-400); RDW Coefficient of Variation 12.5 % (11.5-14.5); Red Blood Count 4.89 M/uL (4.63-6.08); White Blood Count 8.24 K/ul (4.8-10.8)
[2022-09-14 02:12] LABS: Troponin I High Sensitivity 5.2 pg/ml (0-20)
[2022-09-14 02:19] LABS: Albumin Globulin Ratio 1.2 (0.9-2); BUN Creatinine Ratio 24.5 (10-20); Bilirubin,Total 0.5 mg/dl (0.2-1.0); Calcium 9.5 mg/dl (8.5-10.1); Creatinine Clr Calc Pharmacy 134.9 ml/min; Est GFR (African American) 97.4 ml/min; Est GFR (Non-African American) 84.1 ml/min; Globulin 3.3 gm/dl (2.5-4.0); Magnesium 1.9 mg/dl (1.7-2.4); Potassium 3.5 mmol/L (3.5-5.1); Total Protein 7.3 gm/dl (6.0-8.3)
[2022-09-14] MEDS ORDERED: dilTIAZem HCl 5 MG/ML 5 ML VIAL IV STA ×2 (02:34→09:07)
[2022-09-14] MEDS ORDERED: SODIUM CHLORIDE 0.9% 1000ML 1,000 ML IV ONE (02:34)
--- NOTE | 2022-09-14 03:21 | Emergency Department Note ---
Impression & Plan Atrial fibrillation with rapid ventricular response, [facility] NAME: EUN KNUTSON AGE: 57 SEX: M ARRIVES VIA: Walk-In INFORMANT: Patient ED PROVIDER(S): Melina Pelleteir DO CHIEF COMPLAINT: A. fib PLAN: Disposition: Admit to the [facility] Condition: Stable MEDICAL DECISION MAKING: This is a 57-year-old male patient presents to the emergency department with new onset A. fib. Patient has a history of paroxysmal A. fib. Patient was in a rapid rate at greater than 120. Patient was asymptomatic. Patient took a dose of Eliquis at home. Laboratory studies revealed an elevated BUN but otherwise electrolytes were unremarkable. Patient was given a dose of IV Cardizem here in the emergency department which controlled the rate but he remained in atrial fibrillation. The patient has a history of A. fib requiring electrocardioversion. After review of the information above and other included data. I feel the patient will require further inpatient care and evaluation by cardiology for possible electrocardioversion. Triage Nursing notes reviewed and agree with them. Prior medical records reviewed including previous admissions to the hospital for A. fib Vital Signs: reviewed and remarkable for tachycardia Differential diagnosis: Recurrent A. fib; anxiety; tachycardia ER treatment provided: IV Cardizem IV normal saline Twelve-lead EKG Cardiac monitoring Diagnostics interpreted by me: ECG: Atrial fibrillation with rapid ventricular response at a rate of 125 T wave inversion in the inferior leads with no ectopy Cardiac Monitoring: A. fib at a rate of 118 Laboratory studies: See below HPI: 57/M arrives for evaluation of A. fib. The patient was preparing to go to sleep when he got up to go to the bathroom and felt his heart going to an irregular rhythm. He took his pulse and found it to be fast. The patient has a history of paroxysmal A. fib. Patient's last episode of atrial fibrillation with rapid ventricular response was July 2019. Patient confirmed the rapid rate with a pulse ox and took a dose of Eliquis. PAST MEDICAL HISTORY:Paroxysmal A. 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 Pupils are equal, round, and reactive to light. Extraocular eye muscles are intact, and sclera are anicteric. Nose -dry nasal mucosa without discharge. Mouth -dry buccal mucosa. Oropharynx is nonerythematous and there is no tonsillar exudate or edema noted. Neck: Supple; no JVD or cervical lymphadenopathy Heart: Irregularly irregular rhythm with a rapid rate. there is a normal S1 and S2 with no murmurs, clicks, or gallops appreciated. Lungs: Clear to auscultation bilaterally with no wheezes, rales, or rhonchi. Abdomen: Soft, completely nontender, nondistended, with good bowel sounds. There are no palpable pulsatile masses or hepatosplenomegaly. There is no guarding, rigidity, or rebound noted. Extremities: No evidence of cyanosis, clubbing, or edema. There are easily palpable peripheral pulses. Skin: warm and dry with good turgor and no rashes. ED COURSE: Times/Reassessments: 110: Patient was evaluated in room C6. A complete history and physical was performed. An IV lock was initiated and labs were drawn as above. A twelve-lead EKG was obtained as described above. An order was placed for continuous cardiac monitoring. The patient was in A. fib at a rate of 118. Patient was given a dose of IV Cardizem. I reviewed the results of the laboratory studies with the patient. His rate was controlled but he remained in atrial fibrillation. I discussed case with the [facility] Hospitalist and they will evaluate for further management. Melina Pelletier DO Past Med/Surg History Medical History Anxiety CONTROLLED, NO MEDS Family history of reaction to anesthesia QUESTIONABLE HX, PT NOT SURE DETAILS - GRANDFATHER MENTAL DECLINE FOLLOWING G ENERAL ANESTHESIA FOR KNEE REPLACEMENT History of cardioversion X3 - JUL 2019 MOST RECENT History of syncope Panic disorder MANAGEABLE , NO MEDS CURRENTLY Paroxysmal atrial fibrillation "EPISODIC" LAST EPISODE JUL 2019...FOLLOWS EZRA PARTIDA CARDIOVERSION X3 TMJ (temporomandibular joint disorder) CLICKS Surgical History History of adenoidectomy History of colonoscopy History of hand surgery CYST REMOVAL FROM FINGER History of right cataract surgery Family History Other Cancer Heart disease Social History Smoking Status: Never smoker Second Hand Exposure: No; Hx Alcohol Use: No Hx Substance Use: No Preferred Language: Yi Communication Ability: Effective Lining Marker Required: No Beliefs That Will Affect Care: None marital status: Current Living Situation: Family Feels Safe at Home: Yes Assistive Devices: Glasses Allergies Allergies Allergy/AdvReac Type Severity Reaction Status Date / Time beta blockers AdvReac Unknown HEART Uncoded 12/30/21 10:45 STOPPED, PASSED OUT Home Meds Home Medications Medication Instructions Recorded Confirmed pravastatin 40 mg tablet 40 mg PO HS 07/31/19 12/30/21 triamcinolone acetonide 55 mcg 2 spray intranasal DAILY 08/01/19 12/30/21 nasal spray aerosol (Nasacort) ascorbic acid (vitamin C) 500 mg 500 mg PO QID 12/17/20 12/30/21 tablet (Vitamin C) terbinafine HCl 1 % topical cream 1 applic topical UD PRN TOENAIL 03/28/21 12/30/21 FUNGUS Results & Data (ED) Vital Signs Vital Signs - 24 hr 09/14/22 00:57 09/14/22 03:00 09/14/22 05:00 Temperature 36.6 C Temperature Source Temporal Artery Scan Pulse Rate 93 H Pulse Rate [Finger] 88 120 H Pulse Rhythm [Finger] Irregular Respiratory Rate 20 18 18 Blood Pressure 171/145 H Blood Pressure [Right Arm] 119/78 127/77 Blood Pressure Mean 153 Blood Pressure Mean [Right Arm] 91 93 Pulse Oximetry 97 95 96 Oxygen Delivery Method Room Air Room Air Sepsis Recent Fever Within 48 Hours No Sepsis New/Unexplained Change in Mental Status N/A Sepsis Action Taken by Nursing No Action Required Laboratory Data 09/14/22 01:10 09/14/22 01:10 Lab Results 09/14/22 09/14/22 09/14/22 Range/Units 01:10 01:10 01:10 WBC 8.24 (4.8-10.8) K/ul RBC 4.89 (4.63-6.08) M/uL Hgb 15.1 (14.0-18.0) g/dl Hct 42.8 (40.1-51.0) % MCV 87.5 (80.0-100.0) fL MCH 30.9 (25.0-34.0) pg MCHC 35.3 (32.0-36.0) g/dL RDW Std Deviation 39.0 (36.4-46.3) fL RDW Coeff of Logan 12.5 (11.5-14.5) % Plt Count 204 (130-400) K/uL MPV 11.1 (9.4-12.4) fL Immature Gran % (Auto) 0.4 % Neut % (Auto) 54.9 % Lymph % (Auto) 33.1 % [place] % (Auto) 9.6 % Eos % (Auto) 1.5 % Baso % (Auto) 0.5 % Neut # (Auto) 4.53 (1.4-6.5) K/uL Lymph # (Auto) 2.73 (1.2-3.4) K/uL [place] # (Auto) 0.79 (0.24-0.82) K/uL Eos # (Auto) 0.12 (0-0.50) K/uL Baso # (Auto) 0.04 (0-0.2) K/uL Immature Gran # (Auto) 0.03 H (0.00-0.02) K/uL Sodium 140 (136-145) mmol/L Potassium 3.5 (3.5-5.1) mmol/L Chloride 104 (98-107) mmol/L Carbon Dioxide 29 (21-32) mmol/L Anion Gap 7 (3-11) BUN 24 H (6-23) mg/dl Creatinine 0.98 (0.6-1.4) mg/dl Est Cr Clr Drug Dosing 134.9 ml/min Est GFR ( Amer) 97.4 ml/min Est GFR (Non-Af Amer) 84.1 ml/min BUN/Creatinine Ratio 24.5 H (10-20) Glucose 106 H (70-99(Fasting)) mg/dl Calcium 9.5 (8.5-10.1) mg/dl Magnesium 1.9 (1.7-2.4) mg/dl Total Bilirubin 0.5 (0.2-1.0) mg/dl AST 16 (13-39) U/L ALT 15 (7-52) U/L Alkaline Phosphatase 52 (34-104) U/L Troponin I High Sens 5.2 (0-20) pg/ml Total Protein 7.3 (6.0-8.3) gm/dl Albumin 4.0 (3.4-5.0) gm/dl Globulin 3.3 (2.5-4.0) gm/dl Albumin/Globulin Ratio 1.2 (0.9-2) TSH 3.359 (0.300-4.500) uIu/ml SARS-CoV-2, RNA, NAAT (NEGATIVE) 09/14/22 Range/Units 03:38 WBC (4.8-10.8) K/ul RBC (4.63-6.08) M/uL Hgb (14.0-18.0) g/dl Hct (40.1-51.0) % MCV (80.0-100.0) fL MCH (25.0-34.0) pg MCHC (32.0-36.0) g/dL RDW Std Deviation (36.4-46.3) fL RDW Coeff of Logan (11.5-14.5) % Plt Count (130-400) K/uL MPV (9.4-12.4) fL Immature Gran % (Auto) % Neut % (Auto) % Lymph % (Auto) % Columbia % (Auto) % Eos % (Auto) % Baso % (Auto) % Neut # (Auto) (1.4-6.5) K/uL Lymph # (Auto) (1.2-3.4) K/uL Columbia # (Auto) (0.24-0.82) K/uL Eos # (Auto) (0-0.50) K/uL Baso # (Auto) (0-0.2) K/uL Immature Gran # (Auto) (0.00-0.02) K/uL Sodium (136-145) mmol/L Potassium (3.5-5.1) mmol/L Chloride (98-107) mmol/L Carbon Dioxide (21-32) mmol/L Anion Gap (3-11) BUN (6-23) mg/dl Creatinine (0.6-1.4) mg/dl Est Cr Clr Drug Dosing ml/min Est GFR ( Amer) ml/min Est GFR (Non-Af Amer) ml/min BUN/Creatinine Ratio (10-20) Glucose (70-99(Fasting)) mg/dl Calcium (8.5-10.1) mg/dl Magnesium (1.7-2.4) mg/dl Total Bilirubin (0.2-1.0) mg/dl AST (13-39) U/L ALT (7-52) U/L Alkaline Phosphatase (34-104) U/L Troponin I High Sens (0-20) pg/ml Total Protein (6.0-8.3) gm/dl Albumin (3.4-5.0) gm/dl Globulin (2.5-4.0) gm/dl Albumin/Globulin Ratio (0.9-2) TSH (0.300-4.500) uIu/ml SARS-CoV-2, RNA, NAAT NEGATIVE (NEGATIVE) Administered Medications Potassium Chloride (K Fox / Wtr) 10 meq in 100 mls @ 100 mls/hr IV Q1H MELL Stop: 09/14/22 07:59 Last Admin: 09/14/22 05:00 Dose: 100 mls/hr Documented By: JAZIEL Magnesium Sulfate/Dextrose (Magnesium Sulfate / D5w) 1 gm in 100 mls @ 50 mls/hr IV Q2H MELL Stop: 09/14/22 08:59 Last Admin: 09/14/22 05:00 Dose: 50 mls/hr Documented By: JAZIEL Discontinued Medications Diltiazem HCl (Diltiazem Hcl 5 Mg/Ml 5 Ml Vial) 10 mg IV NOW STA Stop: 09/14/22 02:35 Last Admin: 09/14/22 02:41 Dose: 10 mg Documented By: JAZIEL Co-signed By: MICHAEL Sodium Chloride (Nss 1000ml) 1,000 mls @ 999 mls/hr IV .Q1H1M ONE Stop: 09/14/22 03:34 Last Infusion: 09/14/22 03:44 Dose: 0 mls/hr Documented By: Admin: 09/14/22 02:41 Dose: 999 mls/hr Documented By: JAZIEL Discharge Plan Visit Data Chief Complaint: Tachycardia Stated Complaint: A-FIB ED Provider: Melina Pelletier Discharge Problem: Atrial fibrillation with rapid ventricular response, Dehydration Forms Stand Alone Forms: [facility] Prescriptions Prescriptions: No Action pravastatin 40 mg tablet 40 mg PO HS triamcinolone acetonide [Nasacort] 55 mcg Aerosol,[place] 2 spray INTRANASAL DAILY ascorbic acid (vitamin C) [Vitamin C] 500 mg tablet 500 mg PO QID terbinafine HCl 1 % Cream 1 applic TOPICAL UD PRN (Reason: TOENAIL FUNGUS) Referrals Referrals: Charlie Silverman MD [Primary Care Provider] -
--- NOTE | 2022-09-14 04:09 | History & Physical Report ---
Date of Service September 14, 2022 Assessment & Plan (1) Atrial fibrillation with rapid ventricular response: Plan: 57yo male with a history of pAF with RVR (last episode 07/2019), HTN, and HLD presents with a one-day history of palpitations. Atrial fibrillation with RVR, palpitations Patient with a known history of pAF presents with palpitations, then found to be in AF with RVR EKG without overt ischemic change, hsTroponin negative Diltiazem 10mg (x1) administered in ED, rate currently ~90-105 so will hold off on further rate control measures Cardiology consulted - patient has required cardioversion in the past and may require this again Patient took one dose of eliquis around 09/13 at 23:59 - SCDs ordered, no other AC ordered at the moment Will replete potassium with a goal over 4.0 and magnesium with a goal over 2.0 HTN BP on arrival elevated to 170s/140s; repeat 119/78 Continue to monitor HLD: home regimen FEN: NPO pending possible cardioversion Code status: full code DVT ppx: SCDs Consults: cardiology Dispo: med/telemetry (2) HTN (hypertension): (3) Hyperlipidemia: History of Present Illness Primary Care Provider: Charlie Silverman MD 57yo male with a history of pAF with RVR (last episode 07/2019), HTN, and HLD presents with a one-day history of palpitations.Patient notes a history of paroxysmal AF with RVR with his last episode of AF being in 2019. Patient was in his normal state of health this evening when he noticed sudden-onset heart palpitations; patient took his HR and noted it was elevated over 100. Patient denies any recent illnesses or other identifiable triggers. 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 Patient took one tablet of eliquis this evening right around midnight. Patient denies fever, chills, headache, vision changes, CP, SOB, edema, abdominal pain, nausea, vomiting, dysuria, hematochezia, melena, back pain, lightheadedness, dizziness, weakness, or other symptoms. Denies recent illness. Upon arrival, vitals were notable for elevated BP (170s/140s); no tachycardia, no tachypnea, patient afebrile, spO2 adequate on room air. Initial labs were relatively unremarkable; no leukocytosis, no anemia, platelets wnl, no electrolyte abnormalities, creatinine not elevated, LFTs wnl, Tbili not elevated, covid PCR negative. In the ED, patient received NSS 1L bolus (x1) and diltiazem 10mg IV (x1). EKG: AF with RVR, rate in 120s, no overt ischemic change Surrogate decision maker: Marily Diaz (cell: [phone]) Allergies Allergy/AdvReac Type Severity Reaction Status Date / Time beta blockers AdvReac Unknown HEART Uncoded 12/30/21 10:45 STOPPED, PASSED OUT Home Medications Medication Instructions Recorded Confirmed Type pravastatin 40 mg tablet 40 mg PO HS 07/31/19 12/30/21 History triamcinolone acetonide 55 mcg 2 spray intranasal DAILY 08/01/19 12/30/21 History nasal spray aerosol (Nasacort) ascorbic acid (vitamin C) 500 mg 500 mg PO QID 12/17/20 12/30/21 History tablet (Vitamin C) terbinafine HCl 1 % topical cream 1 applic topical UD PRN TOENAIL 03/28/21 12/30/21 History FUNGUS Past Med/Surg History Medical History Anxiety CONTROLLED, NO MEDS Family history of reaction to anesthesia QUESTIONABLE HX, PT NOT SURE DETAILS - GRANDFATHER MENTAL DECLINE FOLLOWING GENERAL ANESTHESIA FOR KNEE REPLACEMENT History of cardioversion X3 - JUL 2019 MOST RECENT History of syncope Panic disorder MANAGEABLE , NO MEDS CURRENTLY Paroxysmal atrial fibrillation "EPISODIC" LAST EPISODE JUL 2019...FOLLOWS EZRA PARTIDA CARDIOVERSION X3 TMJ (temporomandibular joint disorder) CLICKS Surgical History History of adenoidectomy History of colonoscopy History of hand surgery CYST REMOVAL FROM FINGER History of right cataract surgery Family History Other Cancer Heart disease Social History Smoking Status: Never smoker Second Hand Exposure: No; Hx Alcohol Use: No Hx Substance Use: No Preferred Language: Estonian Communication Ability: Effective Asic Engineer Required: No Beliefs That Will Affect Care: None marital status: Current Living Situation: Family Feels Safe at Home: Yes Assistive Devices: Glasses Physical Exam Physical Exam: Constitutional: well-appearing, no acute distress HEENT: NCAT, no conjunctival injection CV: irregularly irregular rhythm, no murmur appreciated, extremities well- perfused, no LE edema Resp: CTABL, no wheezes/rales/rhonchi appreciated, no increased work of breathing GI: soft, nondistended, nontender, BS normoactive MSK: no gross deformities appreciate, no calf tenderness Skin: warm, dry, no rash appreciated Neuro: alert, oriented, no focal neurologic deficit appreciated Results & Data Results & Data ([facility]) Vital Signs (Past 12 Hours) Vital Signs Temp Pulse Pulse Resp BP BP Pulse Ox 09/14/22 03:00 88 18 119/78 95 09/14/22 00:57 36.6 C 93 H 20 171/145 H 97 O2 Del Method 09/14/22 03:00 Room Air 09/14/22 00:57 Resident Activity Tracking Resident Involvement: Resident Care Provided and 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
[2022-09-14] MEDS: POTASSIUM CHLORIDE / WTR 10 MEQ/100 ML PLCT IV SCH ×3 (05:00→07:27)
[2022-09-14] MEDS: MAGNESIUM SULFATE / D5W 1 GM/100 ML BAG IV SCH ×2 (05:00→06:50)
--- NOTE | 2022-09-14 07:45 | Hospitalist Progress Note ---
Date of Service September 14, 2022 Assessment & Plan (1) Atrial fibrillation with rapid ventricular response: Plan: 57yo male with a history of pAF with RVR (last episode 07/2019), HTN, and HLD presents with a one-day history of palpitations. Atrial fibrillation with RVR, palpitations Patient with a known history of pAF presents with palpitations, then found to be in AF with RVR EKG without overt ischemic change, hsTroponin negative Diltiazem 10mg (x1) administered in ED, rate currently ~90-105 so will hold off on further rate control measures Cardiology consulted - patient has required cardioversion in the past and may require this again Patient took one dose of eliquis around 09/13 at 23:59 - SCDs ordered, no other AC ordered at the moment Will replete potassium with a goal over 4.0 and magnesium with a goal over 2.0 HTN BP on arrival elevated to 170s/140s; repeat 119/78 Continue to monitor HLD: home regimen FEN: NPO pending possible cardioversion Code status: full code DVT ppx: SCDs Consults: cardiology Dispo: med/telemetry (2) HTN (hypertension): (3) Hyperlipidemia: Admission and Anticipated Discharge Date Admission Date: September 14, 2022 Results & Data Results & Data ([facility]) Vital Signs (Past 12 Hours) Vital Signs Temp Pulse Pulse Resp BP BP Pulse Ox 09/14/22 05:00 120 H 18 127/77 96 09/14/22 03:00 88 18 119/78 95 09/14/22 00:57 36.6 C 93 H 20 171/145 H 97 O2 Del Method 09/14/22 05:00 Room Air 09/14/22 03:00 Room Air 09/14/22 00:57 (1) HTN (hypertension) Hypertension type: unspecified Qualified Code(s): I10 - Essential (primary) hypertension
--- NOTE | 2022-09-14 10:31 | Anesthesiology Consultation ---
Date of Service September 14, 2022 Assessment & Plan (1) Encounter for pre-operative examination: Chart Review Chart Review: Acceptable Risk for Surgery and Patient NOT seen in Pre Admission Testing Consults Requested none History Surgery Operation Date: 09/14/22 10:45 Proposed Procedures p Cardioversion Complaint Adjuster w/Anesthesia - Marquis Benjamin MD Height/Weight Height: 6 ft 8 in Weight: 149.7 kg Allergies Allergy/AdvReac Type Severity Reaction Status Date / Time beta blockers AdvReac Unknown HEART Uncoded 12/30/21 10:45 STOPPED, PASSED OUT Medications Home Medications Medication Instructions Recorded Confirmed Last Taken pravastatin 40 mg tablet 40 mg PO HS 07/31/19 12/30/21 04/16/21 triamcinolone acetonide 55 mcg 2 spray intranasal DAILY 08/01/19 12/30/21 04/17/21 08:00 nasal spray aerosol (Nasacort) ascorbic acid (vitamin C) 500 mg 500 mg PO QID 12/17/20 12/30/21 04/16/21 tablet (Vitamin C) terbinafine HCl 1 % topical cream 1 applic topical UD PRN TOENAIL 03/28/21 12/30/21 Unknown FUNGUS Past Medical History Medical History Anxiety CONTROLLED, NO MEDS Family history of reaction to anesthesia QUESTIONABLE HX, PT NOT SURE DETAILS - GRANDFATHER MENTAL DECLINE FOLLOWING GENERAL ANESTHESIA FOR KNEE REPLACEMENT History of cardioversion X3 - JUL 2019 MOST RECENT History of syncope Panic disorder MANAGEABLE , NO MEDS CURRENTLY Paroxysmal atrial fibrillation "EPISODIC" LAST EPISODE JUL 2019...FOLLOWS EZRA PARTIDA CARDIOVERSION X3 TMJ (temporomandibular joint disorder) CLICKS Atrial fibrillation with RVR, palpitations Patient with a known history of pAF presents with palpitations, then found to be in AF with RVR EKG without overt ischemic change, hsTroponin negative Diltiazem 10mg (x1) administered in ED, rate currently ~90-105 so will hold off on further rate control measures Cardiology consulted - patient has required cardioversion in the past and may require this again Patient took one dose of eliquis around 09/13 at 23:59 - SCDs ordered, no other AC ordered at the moment Will replete potassium with a goal over 4.0 and magnesium with a goal over 2.0 Past Family History Family History Other Cancer Heart disease Past Surgical History Surgical History History of adenoidectomy History of colonoscopy History of hand surgery CYST REMOVAL FROM FINGER History of right cataract surgery Social History Smoking Status: Never smoker Hx Alcohol Use: No Alcohol type: beer alcohol intake frequency: holidays/special occasions only Hx Substance Use: No substance use type: does not use Physical Exam Vital Signs Last Vital Signs Temp 36.6 C 09/14/22 00:57 Pulse 115 H 09/14/22 10:15 Resp 18 09/14/22 10:15 BP 135/90 09/14/22 10:15 Pulse Ox 96 09/14/22 10:15 O2 Del Method 09/14/22 10:15 Testing Laboratory Results 09/14/22 01:10 09/14/22 01:10 Electrocardiogram Date: 09/14/22 Findings: + AFIB @ (125) Atrial fibrillation with rapid ventricular response ST & T wave abnormality, consider inferior ischemia Abnormal ECG When compared with ECG of 01-AUG-2019 10:55, Atrial fibrillation has replaced Sinus rhythm Vent. rate has increased BY 63 BPM
[2022-09-14] MEDS ORDERED: PHENYLEPHRINE 100MCG/ML 5ML SYR ONE (10:46)
[2022-09-14] MEDS ORDERED: PROPOFOL IV EMULSION 10 MG/ML 20 ML VIAL IV ONE (10:46)
--- NOTE | 2022-09-14 11:17 | Anesthesiology Progress Note ---
Date of Service September 14, 2022 Anesthesia Post Procedure Vital Signs Vital Signs: Temp Pulse Pulse Resp BP BP Pulse Ox 09/14/22 10:51 105 H 16 141/88 H 95 09/14/22 10:15 115 H 18 135/90 96 09/14/22 09:00 114 H 20 130/99 97 09/14/22 08:30 124 H 18 121/81 97 09/14/22 08:07 104 H 16 106/75 97 09/14/22 07:30 89 16 131/77 95 09/14/22 07:00 101 H 14 112/72 95 09/14/22 05:00 120 H 18 127/77 96 09/14/22 03:00 88 18 119/78 95 09/14/22 00:57 36.6 C 93 H 20 171/145 H 97 O2 Del Method 09/14/22 10:51 Room Air 09/14/22 10:15 Room Air 09/14/22 09:00 Room Air 09/14/22 08:30 Room Air 09/14/22 08:07 Room Air 09/14/22 07:30 09/14/22 07:00 09/14/22 05:00 Room Air 09/14/22 03:00 Room Air 09/14/22 00:57 Transfer of Care Handoff Completed per policy Notes Mental Status: alert / awake / arousable and participated in evaluation Patient Amnestic to Procedure: Yes Nausea / Vomiting: adequately controlled Pain: adequately controlled Airway Patency, RR, SpO2: stable & adequate BP & HR: stable & adequate Hydration State: stable & adequate Anesthetic Complications: no major complications apparent and Pt Satisfied with anesthetic care
[2022-09-14] MEDS ORDERED: APIXABAN 5 MG TABLET PO ONE (11:30)
--- NOTE | 2022-09-14 11:53 | Cardioversion ---
Date of Service September 14, 2022 PG Electrical Cardioversion Rp Electrical Cardioversion Report Indication: Atrial fibrillation with rapid ventricular response Written consent was obtained after the risks and benefits were explained, including but not limited to pain, thermal burn, allergic reaction, aspiration, airway obstruction, laryngospasm, infection, hypotension, and cardiorespiratory arrest. At this time, the risks of the procedure are less than the risks of NOT performing the procedure. A time out was taken and the correct patient and procedure identified. Suction, airway equipment, medications, respiratory equipment, ACLS cart, and appropriate personnel were prepared prior to the initiation of the procedure. Sedation was achieved as per anesthesiology utilizing propofol. The biphasic defibrillator was set to 100 joules of energy and synched. After confirmation of sedation and "all clear" safety check the synchronized shock was delivered. Rhythm remained atrial fibrillation, defibrillator set to 150 J and resynchronized, after confirmation of sedation and "all clear" safety check synchronized 150 J shock was delivered. This resulted in successful conversion back into sinus rhythm at 60 bpm. See nursing notes for dosages and times. There were no complications and the patient recovered uneventfully from the procedure. Coding Level of Care Code Cardioversion, elective Additional Codes Electrical Cardioversion Report ([id number])
--- NOTE | 2022-09-14 11:57 | Discharge Summary ---
Date of Service September 14, 2022 Admission HPI Per Admitting Provider 57yo male with a history of pAF with RVR (last episode 07/2019), HTN, and HLD presents with a one-day history of palpitations.Patient notes a history of paroxysmal AF with RVR with his last episode of AF being in 2019. Patient was in his normal state of health this evening when he noticed sudden-onset heart palpitations; patient took his HR and noted it was elevated over 100. Patient denies any recent illnesses or other identifiable triggers. 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 Patient took one tablet of eliquis this evening right around midnight. Patient denies fever, chills, headache, vision changes, CP, SOB, edema, abdominal pain, nausea, vomiting, dysuria, hematochezia, melena, back pain, lightheadedness, dizziness, weakness, or other symptoms. Denies recent illness. Upon arrival, vitals were notable for elevated BP (170s/140s); no tachycardia, no tachypnea, patient afebrile, spO2 adequate on room air. Initial labs were relatively unremarkable; no leukocytosis, no anemia, platelets wnl, no electrolyte abnormalities, creatinine not elevated, LFTs wnl, Tbili not elevated, covid PCR negative. In the ED, patient received NSS 1L bolus (x1) and diltiazem 10mg IV (x1). EKG: AF with RVR, rate in 120s, no overt ischemic change Surrogate decision maker: Marily Diaz (cell: [phone]) Admission Exam Per Admitting Provider Constitutional: well-appearing, no acute distress HEENT: NCAT, no conjunctival injection CV: irregularly irregular rhythm, no murmur appreciated, extremities well- perfused, no LE edema Resp: CTABL, no wheezes/rales/rhonchi appreciated, no increased work of breathing GI: soft, nondistended, nontender, BS normoactive MSK: no gross deformities appreciate, no calf tenderness Skin: warm, dry, no rash appreciated Neuro: alert, oriented, no focal neurologic deficit appreciated Principal Diagnosis Afib with RVR Discharge Exam Constitutional WD/WN, vitals as above Eyes PERRL, conjunctivae normal, anicteric sclerae ENMT external ear and nose normal, oropharynx normal Neck trachea midline, no thyromegaly Respiratory normal respiratory effort, lungs clear to auscultation Cardiovascular Rate/Rhythm: + tachycardic and + irregularly irregular Gastrointestinal (Abdomen) Inspection/Auscultation: abdomen normal to inspection Percussion/Palpation: abdomen soft; abdomen nontender Skin no rashes, warm and dry Discharge Data Allergies Allergy/AdvReac Type Severity Reaction Status Date / Time beta blockers AdvReac Unknown HEART Uncoded 12/30/21 10:45 STOPPED, PASSED OUT Consultations 09/14/22 03:54 ED Decision to Admit Stat 09/14/22 07:00 Consult Cardiology Routine Procedures Performed Operation Date: 09/14/22 10:45 Actual Procedures p Cardioversion - Marquis Benjamin MD Hospital Course (1) Atrial fibrillation with rapid ventricular response: 57yo male with a history of pAF with RVR (last episode 07/2019), HTN, and HLD presents with a one-day history of palpitations. Atrial fibrillation with RVR, palpitations Patient with a known history of pAF presents with palpitations, then found to be in AF with RVR EKG without overt ischemic change, hsTroponin negative Diltiazem 10mg (x1) and 5mg (x1) given while patient in ED for HR above 120 Cardiology consulted - performed cardioversion, tolerated well, returned to sinus rhythm continue his apixaban 5 mg twice daily for the next 3 weeks have flecainide 100 mg twice daily available f/u with Dr. Hilliard Patient took one dose of eliquis around 09/13 at 23:59, positive afib onset less than 24hr ago - discussed role of sleep apnea in a fib - to discuss further with pcp - discussed role of increasing alcohol use in a fib - further discussion with pcp HTN BP on arrival elevated to 170s/140s; repeat 119/78 Continue to monitor HLD: home regimen Snoring: consider sleep study discussion as outpatient. (2) HTN (hypertension): (3) Hyperlipidemia: Total Time Total Time Spent Total Time Spent (In Minutes): see attending attestation Discharge Plan Discharge Items Patient Disposition: Home - Self-Care Reason For Visit: A-FIB WITH RVR Discharge Diagnosis: a fib with RVR Activity: Resume your previous activity Non-emergency contact: Primary Care Provider and [employer] Consultant Call non-emergency contact if: you have any medication questions, your symptoms worsen and your pain is concerning for you Follow-up/Referrals: Charlie Silverman MD [Primary Care Provider] - Diet: Heart Healthy Addtl Attending Provider Instructions: You were admitted to the hospital for atrial fibrillation. You were seen by cardiology and treated with a cardioversion, which reverted your heart rate back to sinus rhythm. Upon discharge, please continue to check your heart rate daily, and use your eliquis and flecainide as needed for elevated heart rate from atrial fibrillation. You noted snoring while sleeping. Please see your PCP to discuss possible evaluation for sleep apnea, which could contribute to worsening atrial fibrillation. A discharge summary will be sent to your primary care physician to ensure continuity of care. Please bring this discharge summary with you to your next office appointment so that your provider can review it at that time. Follow-up appointments: Make a follow-up appointment with your PCP within the next week. It is very important that you follow up with them shortly after discharge from the hospital. Keep all your follow-up appointments as already scheduled. If you cannot make an appointment, notify your provider. Medications: Your medication list has been reviewed and reconciled upon discharge to ensure accuracy and continuity of care. An updated list of all your medications is included with your hospital discharge paperwork. Please review this list closely, and make note of any changes. We sent a medication called Eliquis to your pharmacy. Please take Eliquis 5mg twice a day as needed for elevated heart rate in atrial fibrillation. This is to prevent blood clots We sent a medication called Flecainide to your pharmacy. Please take Flecainide 100mg every 12 hours as needed for elevated heart rate in atrial fibrillation. This is to control the heart rhythm Take your medications as instructed; do not skip a dose of your medicines. Make sure all of your doctors know every medicine you are taking (including nqmg-kni-sascaiw medicines, vitamins, and supplements). Call your primary care provider before taking any new medicines (including ciiz-ssv-dszqrui medicines, vitamins, and supplements), because some of these may interact with your current medications, or may make your symptoms worse. Tell your primary care provider if you cannot afford your medications. CONTACT YOUR PRIMARY CARE PROVIDER if you experience any of the following: Palpitations, difficulty breathing Fever, confusion Difficulty following your treatment plan, or difficulty taking medications CALL 911 OR GO TO THE EMERGENCY DEPARTMENT if you experience any of the following: Sudden, severe abdominal pain or nausea/vomiting Severe chest pain, or chest pain that radiates (moves) to your jaw or arm Sudden, severe shortness of breath or difficulty breathing Thank you for allowing us to participate in your care. Pending Studies at Discharge: No Stand-Alone Forms: Anesthesia/Sedation, Adult, [facility], Smoking Cessation Medications and DC Order Prescriptions: Continued apixaban 5 mg tablet 5 mg PO BID PRN (Reason: afib) Qty: 60 2RF flecainide 100 mg tablet 100 mg PO Q12H PRN (Reason: aib) Qty: 60 2RF pravastatin 40 mg tablet 40 mg PO HS triamcinolone acetonide [Nasacort] 55 mcg Aerosol,Trinchera 2 spray INTRANASAL DAILY ascorbic acid (vitamin C) [Vitamin C] 500 mg tablet 500 mg PO QID terbinafine HCl 1 % Cream 1 applic TOPICAL UD PRN (Reason: TOENAIL FUNGUS) Discharge Orders: Discharge Order (Routine); Ordered 09/14/22 Ordered By: Anne-Marie Gonzalez Admission Data Admit Date/Time: 09/14/22 04:37 Attending Provider: Raven Swan Admit Provider: Martin Pérez Primary Care Provider: Charlie Silverman Other Providers: Selvin Duarte ; Marquis Benjamin Other Interventions: Discharge Summary Assessment (RN) Last Done: 09/14/22 12:03 Supervising Physician Co-Signing Physician Notes Resident Physician Supervision Note: I independently interviewed and examined the patient and verified the coburn history and physical, reviewed labs and image studies and agree with resident findings and care plan. Resident Activity Tracking Resident Involvement: Resident Care Provided Care Provided: Adult Hospital Medicine
--- NOTE | 2022-09-14 12:05 | Cardiology Consultation ---
Date of Consultation September 14, 2022 Assessment & Plan (1) Atrial fibrillation with RVR: (2) Paroxysmal A-fib: Plan 57-year-old man with recurrence of atrial fibrillation, no clear precipitants and no evidence of ongoing myocardial ischemia, echo from 2019 was unremarkable. He monitors his heart rate routinely and was confident that the atrial fibrillation started less than 24 hours ago. As he has done several times in the past, he again underwent electrical cardioversion and was returned to sinus rhythm (see procedure note for details). Since he had difficulty with beta-blockers in the past and was not inclined to take a routine antiarrhythmic, recommended that he have flecainide 100 mg twice daily available should he have recurrent atrial fibrillation and not have ready access to emergency department/potential cardioversion. Since [place] to foreign [place] and sometimes to [place] settings, it is important for him to have this option available. Recommended that he continue his apixaban 5 mg twice daily for the next 3 weeks, he can then discontinue while closely monitoring his heart rate for any recurrent atrial fibrillation, which would prompt reinitiation of apixaban. He will discuss with Dr. Hilliard additional options for managing his paroxysmal atrial fibrillation long-term, however it has been nearly 4 years since his last episode and he is hopeful that it will be a number of years before his next. At the conclusion of his cardioversion and consultation, he was in sinus rhythm, asymptomatic and hemodynamically stable. History of Present Illness Reason for Consultation: A. fib with rapid ventricular response Requesting Physician: Raven Swan MD Attending Physician: Raven Swan MD History of Present Illness 57-year-old man with history of paroxysmal atrial fibrillation who has had several recurrences requiring cardioversion now presents with abrupt onset palpitations and found to again be in atrial fibrillation with rapid ventricular response. No particular precipitants noted, although he states he has been under a good deal of stress lately. Electrolytes and renal function unremarkable. He had tried low-dose beta-robert before but had issues with orthostatic hypotension and was not taking any routine rate control medication. Since his [id number] score is 0, he is not on long-term anticoagulation, but he did take 1 dose of apixaban last evening. ECG shows no ischemic change and troponin was negative. No chest pain. At the time of my evaluation he was comfortable and had no somatic complaints. Allergies Allergy/AdvReac Type Severity Reaction Status Date / Time beta blockers AdvReac Unknown HEART Uncoded 12/30/21 10:45 STOPPED, PASSED OUT Home Medications Medication Instructions Recorded Confirmed Type pravastatin 40 mg tablet 40 mg PO HS 07/31/19 12/30/21 History triamcinolone acetonide 55 mcg 2 spray intranasal DAILY 08/01/19 12/30/21 Hi story nasal spray aerosol (Nasacort) ascorbic acid (vitamin C) 500 mg 500 mg PO QID 12/17/20 12/30/21 History tablet (Vitamin C) terbinafine HCl 1 % topical cream 1 applic topical UD PRN TOENAIL 03/28/21 12/30/21 History FUNGUS apixaban 5 mg tablet 5 mg PO BID PRN afib #60 tabs 09/14/22 Rx flecainide 100 mg tablet 100 mg PO Q12H PRN aib #60 tabs 09/14/22 Rx Patient History Medical History (Updated 09/14/22 @ 12:00 by Marqius Benjamin MD) Anxiety CONTROLLED, NO MEDS Family history of reaction to anesthesia QUESTIONABLE HX, PT NOT SURE DETAILS - GRANDFATHER MENTAL DECLINE FOLLOWING GENERAL ANESTHESIA FOR KNEE REPLACEMENT History of cardioversion X3 - JUL 2019 MOST RECENT History of syncope New onset a-fib (2017) Panic disorder MANAGEABLE , NO MEDS CURRENTLY Paroxysmal atrial fibrillation "EPISODIC" LAST EPISODE JUL 2019...FOLLOWS EZRA PARTIDA CARDIOVERSION X3 TMJ (temporomandibular joint disorder) CLICKS Surgical History History of adenoidectomy History of colonoscopy History of hand surgery CYST REMOVAL FROM FINGER History of right cataract surgery Family History Other Cancer Heart disease Social History Smoking Status: Never smoker Second Hand Exposure: No; Hx Alcohol Use: No Hx Substance Use: No Preferred Language: Bur[place]ian Communication Ability: Effective Inspector Balance Truing Required: No Beliefs That Will Affect Care: None marital status: Current Living Situation: Family Feels Safe at Home: Yes Assistive Devices: None Physical Exam Physical Exam: Large frame habitus adult white male in no distress. BP normotensive. Pulse 120 bpm and irregular skin: no ecchymoses or generalized lesions. HEENT: unremarkable. Neck: no JVD or carotid bruits. Lungs: clear. Cardiac: Irregular/tachycardic rhythm, normal S1 and S2, no murmur or gallop. Abdomen: benign. Extremities: no edema, pulses intact. Neurologic: normal affect, nonfocal. Results & Data ([facility]) Diagnostic Findings Echocardiogram 2018 showed normal LV systolic function with mildly dilated left atrium and mild to moderately dilated right atrium, no significant valvular heart disease. ECG on admission showed atrial fibrillation with rapid ventricular sponsor 125 bpm, no significant ST deviation. Compared with 08/01/2019 study, A. fib had replaced sinus rhythm. PG Care Time/CCT Total # of Minutes Spent Total Time Spent with Patient: Total time spent is greater than 50% in coordination of care (as documented) at patient's floor/unit and/or counseling patient: Coding Level of Care Code INP/OBS CONSULT LVL 4, 60 MIN Diagnoses Atrial fibrillation with RVR I48.91 Paroxysmal A-fib I48.0
--- NOTE | 2022-09-14 14:30 | Electrocardiogram Report ---
Test Reason : Blood Pressure : / mmHG Vent. Rate : 125 BPM Atrial Rate : 129 BPM P-R Int : 000 ms QRS Dur : 098 ms QT Int : 320 ms P-R-T Axes : 000 027 -28 degrees QTc Int : 461 ms Atrial fibrillation with rapid ventricular response Abnormal ECG When compared with ECG of 01-AUG-2019 10:55, Atrial fibrillation has replaced Sinus rhythm Vent. rate has increased BY 63 BPM Confirmed by Marquis Benjamin ([id number]) on 09/14/2022 2:30:43 PM Referred By: REFERRED SELF Confirmed By:Marquis Benjamin
--- NOTE | 2022-09-14 14:31 | Electrocardiogram Report ---
Test Reason : Blood Pressure : / mmHG Vent. Rate : 068 BPM Atrial Rate : 068 BPM P-R Int : 178 ms QRS Dur : 102 ms QT Int : 402 ms P-R-T Axes : 048 005 000 degrees QTc Int : 427 ms Normal sinus rhythm Normal ECG When compared with ECG of 14-SEP-2022 01:02, Sinus rhythm has replaced Atrial fibrillation Vent. rate has decreased BY 57 BPM Confirmed by Marquis Benjamin ([id number]) on 09/14/2022 2:30:54 PM Referred By: REFERRED SELF Confirmed By:Marquis Benjamin
[2022-09-14] MEDS ORDERED: PRAVASTATIN SOD 40 MG TAB PO SCH (21:00)
== END 2022-09-14 12:24 | disposition home or self-care (01) ==
LOC: ED 00:52 → EDINP 00:52 → SUATTDRO 04:37 → EDINP 12:19